=== PATIENT | female | born 1980 | race Caucasian/White ===

== ENCOUNTER 2023-05-11 19:20 | Outpatient (REF) | payer BC, SELFPAY ==
[2023-05-17 13:09] LABS: Age Gdln ACOG Testing Note (.); HPV Aptima Negative (Negative); IGP, Aptima HPV, rfx 16/18,45 Note (.)
== END 2023-05-11 19:21 | disposition home or self-care (01) ==
LOC: LAB 19:20
PROVIDERS: PCP Family Medicine; Visit Provider Obstetrics & Gynecology
DX: Z01.419 Encounter for gynecological examination (general) (routine) without abnormal findings (principal)
CPT/HCPCS: 87624; G0145

== ENCOUNTER 2023-05-27 07:56 | Outpatient (OUT) | payer BC, SELFPAY ==
--- NOTE | 2023-05-27 | MM_ITS ---
Patient Name: NIC BELTRE MR#: [id number] : 1980 Exam Date: 05/27/2023 Ordering Doctor: DR Humble Leon . RADIOLOGY REPORT PROCEDURE: MM TOMOSYNTHESIS SCREENING BI COMPARISON: MAMMO POST BIOPSY RIGHT, 08/11/2020. MG MAMM SCREEN 3D CORY CAD, 05/20/2022. INDICATIONS: Screening for malignant neoplasm Calculator Name NCI Breast Cancer Risk Assessment Tool 5 Year Breast Cancer Risk 1.00% Lifetime Breast Cancer Risk 10.60% Personal Breast Cancer No Personal Ovarian Cancer No Treatments None Family Cancers None LOCATION: [facility] BREAST COMPOSITION: Heterogeneously dense,which may obscure small masses. FINDINGS: DIAGNOSTIC CATEGORY 2--BENIGN FINDING. NO CHANGE FROM COMPARISON. Scattered benign-appearing nodules are present. Scattered benign-appearing calcifications are present. Scattered benign-appearing lymph nodes are present. RIGHT BREAST: No significant suspicious finding. Stable nodule and micro clip marker lower outer quadrant LEFT BREAST: No significant suspicious finding. Stable focal asymmetry upper outer quadrant RECOMMENDATIONS: ROUTINE MAMMOGRAM AND CLINICAL EVALUATION IN 12 MONTHS. PLEASE NOTE: A NORMAL MAMMOGRAM DOES NOT EXCLUDE THE POSSIBILITY OF BREAST CANCER. A CLINICALLY SUSPICIOUS PALPABLE LUMP SHOULD BE BIOPSIED. Dictated by: Lewis Clemons MD on 05/27/2023 at 09:10 Approved by: Lewis Clemons MD on 05/27/2023 at 09:17
== END 2023-05-27 07:57 | disposition home or self-care (01) ==
LOC: MAMMO 07:57
PROVIDERS: PCP Family Medicine; Visit Provider Obstetrics & Gynecology
DX: Z12.31 Encounter for screening mammogram for malignant neoplasm of breast (principal)
CPT/HCPCS: 77063; 77067

== ENCOUNTER 2024-05-17 19:42 | Outpatient (REF) | payer BC, SELFPAY ==
--- OUTSIDE RECORDS SUMMARY | 2024-05-17 19:46 | XMS_ITS | CCD ---
Author Organization [facility] Inform ion Partnership [facility] Care Team Providers Care Annealer Helper Name Role Phone WEST, DR GEM Escobedo Consulting Unavailable LAURIE, DR KWOK Admitting Unavailable LAURIE, DR KWOK Attending Unavailable KP, DR LUCERO Primary Care Unavailable LAURIE, DR KWOK Consulting Unavailable LAURIE, DR KWOK Consulting Unavailable LAURIE, DR KWOK Admitting Unavailable LAURIE, DR KWOK Attending Unavailable KP, DR LUCERO Primary Care Unavailable Sadie Mcclure Unavailable Clementine Kovacs MD Primary Care Provider Morelia Diamond NP Unavailable MORELIA DIAMOND Attending AMISH Sanders Attending Unavailable AMISH BRADFORD Attending Unavailable MORELIA DIAMOND Attending AMISH Sanders Attending Unavailable Allergies Allergy Classification Reported Allergen(s) Allergy Type Date of Onset Reaction(s) Facility (1 source) Sulfamethoxazole / Trimethoprim Drug Allergy [facility] Repository (5 sources) Sulfamethoxazole / Trimethoprim Drug Allergy 3 hives, Fever, Itching, Rash, Swelling [facility] Medications Current Medications Medication Drug Class(es) Dates Sig (Normalized) Sig (Original) atorvastatin 10 mg oral tablet (3 sources) HMG-CoA Reductase Inhibitor Start: 4 take 1 tablet by mouth once daily in the morning atorvastatin (Lipitor) 10 MG tablet Indications: Mixed hyperlipidemia (CMS/HCC) TAKE ONE TABLET BY MOUTH EVERY MORNING 90 tablet 1 07/15/2023 Active azithromycin 250 mg oral tablet (1 source) Macrolide Antimicrobial Start: 3 Azithromycin 250 MG 2 tablet on the first day, then 1 tablet daily for 4 days Orally Once a day for 5 day(s) November, Active buPROPion hydrochloride 100 mg oral tablet (4 sources) Aminoketone Start: 3 End: 4 take 1 tablet by mouth once daily at bedtime buPROPion (Wellbutrin) 100 MG tablet Indications: Morbid obesity (CMS/HCC) TAKE ONE TABLET BY MOUTH EVERY MORNING AND BEFORE BEDTIME 180 tablet 1 08/16/2023 Active losartan potassium 25 mg oral tablet (4 sources) Angiotensin 2 Receptor Darin Start: 3 End: 4 take 1 tablet by mouth once daily in the morning losartan (Cozaar) 25 MG tablet Indications: Primary hypertension (CMS/HCC) TAKE ONE TABLET BY MOUTH EVERY MORNING 90 tablet 1 08/16/2023 Active melatonin 5 mg oral tablet (3 sources) melatonin 5 MG t ablet 1 (one) time each day at the same time. 0 Active methylPREDNISolone 4 mg oral tablet (2 sources) Corticosteroid Start: 3 methylPREDNISolone 4 MG as directed Orally for daily dose take half with breakfast, half with dinner for 6 days Oct, Active Multiple Vitamins-Minerals (MULTIVITAMIN GUMMIES ADULT PO) (3 sources) Multiple Vitamins-Minerals (MULTIVITAMIN GUMMIES ADULT PO) Take by mouth. 0 Active naltrexone hydrochloride 50 mg oral tablet (3 sources) Opioid Antagonist Start: 3 End: 4 take 0.5 tablet by mouth in the morning naltrexone (Depade) 50 MG tablet Indications: Morbid obesity (CMS/HCC) Take 0.5 tablets (25 mg) by mouth in the morning. Take with bupropion. 45 tablet 0 05/20/2023 08/18/2023 Active 24 hr venlafaxine 37.5 mg extended release oral capsule (5 sources) Serotonin and Norepinephrine Reuptake Inhibitor Start: 3 take 1 capsule by mouth once daily in the morning venlafaxine XR (Effexor XR) 37.5 MG 24 hr capsule Indications: Anxiety and depression (CMS/HCC) TAKE ONE CAPSULE BY MOUTH EVERY MORNING 90 capsule 0 07/01/2023 Active Effexor Active Problems Problem Classification Problem Date Documented Date Episodic/Chronic Allergic reactions (3 sources) Atopic dermatitis; Translations: [Atopic dermatitis, unspecified] Onset: 04-18-2023 04-18-2023 Chronic Disorders of lipid metabolism (6 sources) Elevated fasting lipid profile; Translations: [Hyperlipidemia, unspecified] Onset: 04-18-2023 04-18-2023 Chronic Essential hypertension (1 source) Essential hypertension; Translations: [Essential (primary) hypertension] 08-16-2023 Chronic Headache; including migraine (3 sources) Tension-type headache; Translations: [Tension-type headache, unspecified, not intractable] Onset: 04-18-2023 04-18-2023 Chronic Immunizations and screening for infectious disease (1 source) Encounter for screening for human papillomavirus (HPV); Translations: [ENC SCREENING HUMAN PAPILLOMAVIRUS] Onset: 05-09-2022 Episodic Other inflammatory condition of skin (3 sources) Perioral dermatitis; Translations: [Perioral dermatitis] Onset: 04-18-2023 04-18-2023 Chronic Other nutritional; endocrine; and metabolic disorders (1 source) Morbid obesity; Translations: [Morbid (severe) obesity due to excess calories] 08-16-2023 Chronic Other screening for suspected conditions (not mental disorders or infectious disease) (8 sources) Encounter for screening mammogram for malignant neoplasm of breast; Translations: [Encounter for screening for malignant neoplasm of cervix] Onset: 05-05-2022 Episodic Other upper respiratory disease (2 sources) Seasonal allergy; Translations: [Other seasonal allergic rhinitis] Chronic Other upper respiratory disease (2 sources) Allergic rhinitis due to pollen; Translations: [Allergic rhinitis due to pollen] Chronic Other upper respiratory disease (1 source) Allergic rhinitis due to pollen Chronic Other upper respiratory infections (4 sources) Sore throat symptom; Translations: [Acute pharyngitis, unspecified] Episodic Results Test Name Value Interpretation Reference Range Facil ity Quick Strepon 11-07-2022 S. pyogenes Org specific cx Ql (Throat) Negative [facility] Other Quick Strep [facility] Other MG MAMM SCREEN 3D CORY CADon 05-20-2022 MG MAMM SCREEN 3D CORY CAD Patient: CLEMENTINE BELTRE Exam Date: 05/20/2022 : 1980 Gender:F Ordering : DR SUNDAR LEON . Admission #: [id number] Family : Order #: [id number] CLICK HERE TO VIEW EXAM RADIOLOGY REPORT PROCEDURE: MAMMOGRAM SCREENING 3D BILATERAL CAD COMPARISON: MG MAMM CORY DIAG FU, 08/05/2020. MAMMO POST BIOPSY RIGHT, 08/11/2020. INDICATIONS: Screening mammography Calculator Name NCI Breast Cancer Risk Assessment Tool 5 Year Breast Cancer Risk 0.90% Lifetime Breast Cancer Risk 10.80% Personal Breast Cancer No Personal Ovarian Cancer No Treatments None Family Cancers None LOCATION: [facility] BREAST COMPOSITION: Heterogeneously dense,which may obscure small masses. FINDINGS: DIAGNOSTIC CATEGORY 2--BENIGN FINDING. NO CHANGE FROM COMPARISON. Scattered benign-appearing calcifications are present. Scattered benign-appearing lymph nodes are present. RIGHT BREAST: No significant suspicious finding. Stable micro clip marker lower outer quadrant, mid breast LEFT BREAST: No significant suspicious finding. RECOMMENDATIONS: ROUTINE MAMMOGRAM AND CLINICAL EVALUATION IN 12 MONTHS. PLEASE NOTE: A NORMAL MAMMOGRAM DOES NOT EXCLUDE THE POSSIBILITY OF BREAST CANCER. A CLINICALLY SUSPICIOUS PALPABLE LUMP SHOULD BE BIOPSIED. Dictated by: Gem Cordon MD on 05/21/2022 at 09:12 Approved by: Gem Cordon MD on 05/21/2022 at 09:14 Normal [facility] PAP ACOG PANEL 2: 30 to 65on 05-12-2022 . . Normal [facility] Comment on above: Result Comment: Performed at: WB Performed By: #### [id number] #### [facility] [address] [place] [address] Dr. Benedicto Braswell Age Gdln ACOG Testing 30-65 Normal [facility] Comment on above: Performed By: #### [id number] #### [facility] [address] [address] [address] Benedicto Braswell DIAGNOSIS: Comment Normal [facility] Comment on above: Result Comment: NEGATIVE FOR INTRAEPITHE LIAL LESION OR MALIGNANCY. Performed at: WB Performed By: #### [id number] #### [facility] [address] [address] [address] Benedicto Braswell HPV Aptima Negative Normal Negative [facility] Comment on above: Result Comment: This nucleic acid amplif ication test detects fourteen high-risk HPV types (16,18,31,33,35,39,45,51,52,56,58,59,66,68) without differentiation. Performed at: =G Performed By: #### [id number] #### [facility] [address] [place] [address] Dr. Benedicto Braswell HPV Genotype Reflex Comment Normal [facility] Comment on above: Result Comment: Criteria not met, HPV Ge notype not performed. Performed at: WB Performed By: #### [id number] #### [facility] [address] [place] [address] Dr. Benedicto Braswell Methodology: Comment Normal [facility] Comment on above: Result Comment: This liquid based ThinPr ep(R) pap test was screened with the use of an image guided system. Performed at: WB Performed By: #### [id number] #### [facility] [address] [place] [address] Dr. Benedicto Braswell Note: Comment Normal [facility] Comment on above: Result Comment: The Pap smear is a scree sherry test designed to aid in the detection of premalignant and malignant conditions of the uterine cervix. It is not a diagnostic procedure and should not be used as the sole means of detecting cervical cancer. Both false-positive and false-negative reports do occur. . Performed at: WB Performed By: #### [id number] #### [facility] [address] [place] [address] Dr. Benedicto Braswell Performed by: Comment Normal [facility] Comment on above: Result Comment: David Ramirez, [facility] otechnologist (ASCP) Performed at: WB Performed By: #### [id number] #### [facility] [address] [place] [address] Dr. Benedicto Braswell Specimen adequacy: Comment Normal [facility] Comment on above: Result Comment: Satisfactory for evaluat ion. Endocervical and/or squamous metaplastic cells (endocervical component) are present. Performed at: WB Performed By: #### [id number] #### [facility] [address] [place] [address] Dr. Benedicto Braswell Vital Signs Date Time Vital Sign Value Performing Clinician Facility 11-07-2022 10:45-0400 Body height 168.91 cm Sadie Mcclure Other [facility] Other 11-07-2022 10:45-0400 Body mass index (BMI) [Ratio] 49.28 kg/m2 Sadie Mcclure Other [facility] Other 11-07-2022 10:45-0400 Body temperature 97.5 [degF] Sadie Mcclure Other [facility] Other 11-07-2022 10:45-0400 Body weight 140.62 kg Sadie Mcclure Other [facility] Other 11-07-2022 10:45-0400 Diastolic blood pressure 79 mm[Hg] Sadie Mcclure Other [facility] Other 11-07-2022 10:45-0400 Respiratory rate 18 /min Sadie Mcclure Other [facility] Other 11-07-2022 10:45-0400 SaO2% (BldA) [Mass fraction] 98 % Sadie Mcclure Other [facility] Other 11-07-2022 10:45-0400 Systolic blood pressure 145 mm[Hg] Sadie Mcclure Other [facility] Other Encounters Encounter Date Encounter Type Care Provider Facility Start: 02-08-2024 End: 02-08-2024 ambulatory AMISH KAMPFER Not Available Start: 11-15-2023 End: 11-15-2023 ambulatory AMISH KAMPFER Not Available Start: 08-18-2023 End: 08-18-2023 ambulatory MORELIA DIAMOND Not Available Start: 08-18-2023 Bamboo flowsheet Morelia mcdonough KNITTER HELPER Work Phone: [facility] Start: 08-18-2023 Bamboo flowsheet Morelia mcdonough KNITTER HELPER Work Phone: [facility] Start: 08-18-2023 Telephone encounter lCementine villanueva MD Work Phone: [facility] Start: 08-16-2023 Refill Amish Bradford KNITTER HELPER Work Phone: [facility] Comment on above: Primary hypertension (CMS/HCC); Morbid obesity (CMS/HCC) Start: 06-15-2023 End: 06-15-2023 ambulatory MORELIA DIAMOND Not Available Start: 05-20-2023 End: 05-20-2023 ambulatory AMISH BRADFORD Not Available Start: 11-11-2022 End: 11-11-2022 ambulatory Sadie Mcclure [facility] Other Start: 11-11-2022 Telephone encounter Sadie Mcclure [facility] [address] Start: 11-07-2022 End: 11-07-2022 ambulatory Sadie Mcclure [facility] Other Start: 11-07-2022 Office outpatient ne w 30 minutes Sadie Mcclure [facility] Start: 05-20-2022 End: 05-21-[address] GEM CORDON Facility:[facility] Start: 05-05-2022 End: 05-05-[address] SUNDAR LEON Facility:[facility] Procedures Date Procedure Procedure Detail Performing Clinician Start: 05-27-2023 Mammography Amish ortega [employer]ITTER HELPER Work Phone: Start: 05-05-2022 Microscopic observat ion [Identifier] in Cervix by Cyto stain Amish Bradford KNITTER HELPER Work Phone: Plan of Treatment Date Care Activity Detail Author Start: 05-05-2025 Screening for malign ant neoplasm of cervix [facility] Start: 05-27-2024 Screening for malign ant neoplasm of breast Mammogram [facility] Start: 05-17-2024 End: 05-17-2024 Patient encounter procedure 05/17/2024 8:30 AM EST Office Visit [facility] [address] [place] [address] Sundar Leon DO [address] [place] [address] [facility] Start: 08-18-2023 End: 08-18-2023 Patient encounter procedure 08/18/2023 4:00 PM EST Office Visit [facility] [address] [facility] [id number] Morelia Diamond NP [address], [place] [id number] Arrived [facility] Comment on above: Arrived Start: 2010 Screening for malign ant neoplasm of cervix HPV/Cotest [facility] Immunizations Immunization Date Immunization Notes Care Provider Fa [facility] 04-18-2023 influenza, injectabl e, quadrivalent, preservative free Amish Kampfer KNITTER HELPER Work Phone: [facility] 04-25-2022 influenza, injectabl e, quadrivalent, preservative free Amish Kampfer KNITTER HELPER Work Phone: [facility] 05-05-2021 influenza, injectabl e, quadrivalent, preservative free Amish Kampfer KNITTER HELPER Work Phone: [facility] 04-17-2020 influenza, injectabl e, quadrivalent, preservative free Amish Kampfer KNITTER HELPER Work Phone: [facility] 04-28-2019 influenza, injectabl e, quadrivalent, contains preservative Amish Kampfer KNITTER HELPER Work Phone: [facility] 10-09-2009 tetanus toxoid, redu melissa diphtheria toxoid, and acellular pertussis vaccine, adsorbed Amish Kampfer KNITTER HELPER Work Phone: [facility] Payers Date Payer Category Payer Unknown BCBS BCBS [id number] 2021-Present [phone] [address] [place] [address] [id number] 1980 Unknown [id number] 1980 Unknown [id number] 1980 Unknown [id number] 1980 Unknown [id number] 1980 Unknown [id number] 1980 Unknown [id number] 1980 Unknown [id number] 1959 Unknown [id number] Social History Date Type Detail Facility Unknown if ever smoked [facility] Other Start: 04-10-2023 End: 04-18-2023 Sex Assigned At [facility] Start: 04-16-2023 Tobacco smoking status KYIS Never smoked tobacco [facility] Start: 04-16-2023 Tobacco use and exposure Smokeless tobacco non-user [facility] Start: 05-20-2023 End: 08-18-2023 Alcohol intake Current drinker of alcohol (finding) [facility] Start: 04-10-2023 End: 04-18-2023 History of Social function [facility] Within the last year , have you been afraid of your partner or ex-partner? No [facility] Attends Club or Organization Meetings Not on file [facility] Are you now , , , , never or living with a partner? [facility] How often to you hav e a drink containing alcohol? Monthly or less [facility] How many standard dr inks containing alcohol do you have on a typical day? 1 or 2 [facility] How often do you hav e 6 or more drinks on 1 occasion? Never [facility] Do you feel stress - tense, restless, nervous, or anxious, or unable to sleep at night because your mind is troubled all the time - these days [OSQ] Not at all [facility] (I/We) worried [facility] (my/our) food would run out before (I/we) got money to buy more. Never true [facility] Start: 04-27-2023 Alcohol Comment caffeine: 1-2 cups/day coffee, soda [facility] Start: 1980 Sex Assigned At Not on file [facility] Start: 08-18-2023 Alcohol Comment Social drinker once a month or less [facility] Telephone encounter Note 08-18-2023 Telephone Encounter - Natasha Petit - 08/18/2023 4:32 PM EST Note Date & Type Note Facility 08-18-2023 Telephone encount er Note Patient is asking for a work note for tomorrow. She has been sick for 10 days. Yesterday she worked a 13 hour day. Please advise pt. Thank you. [facility] Note 08-18-2023 Telephone Encounter - Natasha Petit - 08/18/2023 4:32 PM EST Note Date & Type Note Facility 08-18-2023 Miscellaneous Notes Formattin g of this note might be different from the original. Patient is asking for a work note for tomorrow. She has been sick for 10 days. Yesterday she worked a 13 hour day. Please advise pt. Thank you. documented in this encounter [facility] Evaluation note 11-07-2022 Note Date & Type Note Facility 11-07-2022 Evaluation note Encounter Date Diagnosis Assessment Notes Oct, Seasonal allergic rhinitis due to pollen (ICD-10 - J30.1) Advised patient that rapid strep test was negative today in office. No other testing performed at this time. Advised patient to use OTC Zyrtec/Claritin and Flonase for symptom relief. Supportive care as directed, increase fluids and rest, Tylenol/Motrin as directed, OTC cough/cold remedies as directed on packaging, cool mist humidifier, throat lozenges. Discussed infection control practices such as good hand washing and mask wearing. Patient to follow up with PCP if symptoms persist or worsen despite treatment. Immediate eval for SOB, difficulty breathing, chest pain, fevers that do not break with antipyretic or any other concerning symptoms as reviewed on patient education handout. Patient verbalizes understanding and is agreeable to treatment plan. Patient left in stable condition. Oct, Laryngitis (ICD-10 - J04.0) Rapid strep test negative today in office. Will send in Rx of Medrol Dosepak to use as directed. Follow above treatment plan recommendations. Oct, Sore throat (ICD-10 - J02.9) [facility] Other Evaluation note Note Date & Type Note Facility Evaluation note No Information [employer] [facility] Other Evaluation note Note Date & Type Note Facility Evaluation note Diagnosis Primary hypertension (CMS/HCC) Unspecified essential hypertension Morbid obesity (CMS/HCC) Morbid obesity documented in this encounter [facility] History general Narrative - Reported Note Date & Type Note Facility History general Narrative - Reported Type Surgical History LEEP Surgical History tubal ligation Surgical History polypectomy from cervix Surgical History breast biopsy Hospitalization History See above [facility] Other Summary Purpose Family History No Family History Records FoundNo Family History Records Found Advance Directives No Advanced Directives Records FoundNo Advanced Directives Records Found Additional Source Comments INFORMATION SOURCE (unrecogn ized section and content) DATE CREATED AUTHOR 05/24/2022 [facility] DATE CREATED AUTHOR AUTHOR'S ORGANIZ ATION 02/11/2024 [facility] EPIC REASON FOR VISIT (unrecogniz ed section and content) Reason Comments Med Refill Care Teams (unrecognized sec tion and content) Annealer Helper Relationship Specialty Start Date End Date Clementine Kovacs MD [address] [place] [address] PCP - General Family Medicine 11/16/22 Morelia Diamond NP [address] [place] [address] PCP - Fabián [employer] 06/10/23 Annealer Helper Relationship Specialty Start Date End Date Clementine Kovacs MD [address] [place], [place] [id number] PCP - General Family Medicine 11/16/22 Morelia Diamond NP [address], [place] [id number] PCP - Fabián Commercial 06/10/23 FOR RECORDS PERTAINING TO PATIENTS WHO ARE OR HAVE BEEN ENROLLED IN A CHEMICAL DEPENDENCY/SUBSTANCEABUSE PROGRAM, SOME INFORMATION MAY BE OMITTED. This clinical summary was aggregated from multiple sources. Caution should be exercised in using it in the provision of clinical care. This summary normalizes information from multiple sources, and as a consequence, information in this document may materially change the coding, format and clinical context of patient data. In addition, data may be omitted in some cases. CLINICAL DECISIONS SHOULD BE BASED ON THE PRIMARY CLINICAL RECORDS. [facility]. provides no warranty or guarantee of the accuracy or completeness of information in this document.
== END 2024-05-17 19:43 | disposition home or self-care (01) ==
LOC: LAB 19:42
PROVIDERS: PCP Family Medicine; Visit Provider Obstetrics & Gynecology
DX: Z01.419 Encounter for gynecological examination (general) (routine) without abnormal findings (principal)
CPT/HCPCS: 87624; 88175

== ENCOUNTER 2024-05-29 16:24 | Outpatient (OUT) | payer BC, SELFPAY ==
--- NOTE | 2024-05-29 16:26 | MM_ITS ---
Patient Name: NIC BELTRE MR#: [id number] : 1980 Exam Date: 05/29/2024 Ordering Doctor: DR SUNDAR SULLIVAN . RADIOLOGY REPORT PROCEDURE: MM TOMOSYNTHESIS SCREENING BI COMPARISON: MG MAMM SCREEN 3D CORY CAD, 05/20/2022. MM TOMOSYNTHESIS SCREENING BI, 05/27/2023. INDICATIONS: Screening for malignant neoplasm Calculator Name NCI Breast Cancer Risk Assessment Tool 5 Year Breast Cancer Risk 1.10% Lifetime Breast Cancer Risk 10.50% Personal Breast Cancer No Personal Ovarian Cancer No Treatments None Family Cancers None LOCATION: [facility] BREAST COMPOSITION: The breasts are heterogeneously dense,which may obscure small masses. FINDINGS: DIAGNOSTIC CATEGORY 2--BENIGN FINDING. NO CHANGE FROM COMPARISON. Scattered benign-appearing nodules are present. Scattered benign-appearing calcifications are present. Scattered benign-appearing lymph nodes are present. RIGHT BREAST: No significant suspicious finding. LEFT BREAST: No significant suspicious finding. RECOMMENDATIONS: ROUTINE MAMMOGRAM AND CLINICAL EVALUATION IN 12 MONTHS. PLEASE NOTE: A NORMAL MAMMOGRAM DOES NOT EXCLUDE THE POSSIBILITY OF BREAST CANCER. A CLINICALLY SUSPICIOUS PALPABLE LUMP SHOULD BE BIOPSIED. Dictated by: Lewis Clemons MD on 05/30/2024 at 08:30 Approved by: Lewis Clemons MD on 05/30/2024 at 08:31
== END 2024-05-29 16:25 | disposition home or self-care (01) ==
LOC: MAMMO 16:24
PROVIDERS: PCP Family Medicine; Visit Provider Obstetrics & Gynecology
DX: Z12.31 Encounter for screening mammogram for malignant neoplasm of breast (principal)
CPT/HCPCS: 77063; 77067

== ENCOUNTER 2025-05-30 09:23 | Outpatient (OUT) | payer BC, SELFPAY ==
--- NOTE | 2025-05-30 09:24 | MM_ITS ---
Patient Name: NIC BELTRE MR#: [id number] : 1980 Exam Date: 05/30/2025 Ordering Doctor: DR SUNDAR SULLIVAN . RADIOLOGY REPORT PROCEDURE: MM TOMOSYNTHESIS SCREENING BI COMPARISON: MM TOMOSYNTHESIS SCREENING BI, 05/29/2024. MM TOMOSYNTHESIS SCREENING BI, 05/27/2023. MG MAMM SCREEN 3D CORY CAD, 05/20/2022. MG MAMM SCREEN CORY W CAD, 07/28/2020. INDICATIONS: Screening Calculator Name NCI Breast Cancer Risk Assessment Tool 5 Year Breast Cancer Risk 1.20% Lifetime Breast Cancer Risk 10.40% Personal Breast Cancer No Personal Ovarian Cancer No Treatments None Family Cancers None LOCATION: [facility] BREAST COMPOSITION: There are scattered areas of fibroglandular density. FINDINGS: DIAGNOSTIC CATEGORY 1--NEGATIVE. RIGHT BREAST: No significant suspicious finding. LEFT BREAST: No significant suspicious finding. RECOMMENDATIONS: ROUTINE MAMMOGRAM AND CLINICAL EVALUATION IN 12 MONTHS. Dictated by: Jaime Dawson DO on 05/30/2025 at 15:07 Approved by: Jaime Dawson DO on 05/30/2025 at 15:08
--- OUTSIDE RECORDS SUMMARY | 2025-05-30 09:26 | XMS_ITS | Clinical Summary ---
Author Organization [facility] tem Address [id number] [address] 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 Name Role Phone Unavailable Primary Care Provider Unavailabl e Social History Tobacco UseTypesPacks/DayYears UsedDateSmoking Tobacco: Never AssessedChildcare AnswerDate NnfyptoaQcnxovwknYldeheq49/12/2019EmploymentAnswerDate Recorded SndwfawbroApzpbzi43/12/2019CommentsUnknownSex and Gender Information ValueDate RecordedSex Assigned at BirthNot on fileLegal UgsBdmklt72/06/2015 12:06 PM EDTGender IdentityNot on fileSexual OrientationNot on file Plan of Treatment Health MaintenanceDue DateLast DoneCommentsDepression Zlohkypoy53/06/1992Tobacco Vtxhwkgik32/06/1992Adult BMI Hyymszwvf63/06/1998DTaP,Tdap and Td Vaccines (1 - Tdap)1999Pap Smear2001Influenza Zlefdvs7003/11/2025 Medical Devices Not on file Insurance
--- OUTSIDE RECORDS SUMMARY | 2025-05-30 09:32 | XMS_ITS | CCD ---
Author Organization [facility] Care Team Providers Care Health Care Sanitary Technician Name Role Phone WEST, DR GEM Escobedo Consulting Unavailable EDWARD, DR KWOK Admitting Unavailable EDWARD, DR KWOK Attending Unavailable KP, DR LUCERO Primary Care Unavailable EDWARD, DR KWOK Consulting Unavailable EDWARD, DR KWOK Consulting Unavailable EDWARD, DR KWOK Admitting Unavailable EDWARD, DR KWOK Attending Unavailable KP, DR LUCERO Primary Care Unavailable Sadie Mcclure Unavailable Clementine Goodrich MD Primary Care Provider Dara QUALITY CONTROL DIRECTOR, Morelia Sykes Unavailable Juarez QUALITY CONTROL DIRECTOR, Hyacinth Sykes Unavailable Juarez QUALITY CONTROL DIRECTOR, Hyacinth A Unavailable AMISH BRADFORD Attending Unavailable AMISH BRADFORD Attending Unavailable SUNDAR LEON Attending Unavailable AMISH BRADFORD Attending Unavailable AMISH BRADFORD Attending Unavailable MORELIA YEE Attending Unavailab le Allergies Allergy ClassificationReported Allergen(s)Allergy TypeDate of OnsetReaction(s) Facility (1 source)Sulfamethoxazole / TrimethoprimDrug AllergyThe [facility] (20 sources)Sulfamethoxazole / TrimethoprimDrug Otostrk62-44-6903vybyt, Fever, Itching, Rash, SwellingNOMS Healthcare (1 source)SulfamethoxazoleDrug Rufkyql38-22-8109IgsddCsbqinledChildren's Hospital for Rehabilitation (1 source)TrimethoprimDrug Jstgosd89-86-4059SgshaZadavorvsChildren's Hospital for Rehabilitation Medications Current Medications MedicationDrug Class(es)DatesSig (Normalized)Sig (Original)[id number] 200 actuat albuterol 0.09 mg/actuat metered dose inhaler (7 sources)beta2-Adrenergic AgonistStart: 55-98-2628orqo 2 puff(s) by inhalation every four hours for wheezingalbuterol HFA 90 mcg/act inhaler Indications: Acute bronchitis, unspecified organism Inhale 2 puffsevery 4 (four) hours if needed for wheezing 18 g 12/21/2024 Activeamoxicillin 500 mg oral capsule (5 sources)Penicillin-class AntibacterialStart: 91-20-4190qxck 1 capsule by mouth every eight hours as neededamoxicillin (Amoxil) 500 MG capsule Take 500 mg by mouth if needed (every 8 hours as needed) 01/14/2025 Activeamoxicillin 875 mg / clavulanate 125 mg oral tablet (3 sources)Penicillin-class AntibacterialStart: 05-14-2025 End: 94-90-0846rvah 1 tablet by mouth in the morningamoxicillin-clavulanate (Augmentin) 875-125 MG tablet Indications: Bronchitis , Acute left otitis media Take 1 tablet (875 mg) by mouth in the morning and 1 tablet (875 mg) before bedtime. Do all this for 7 days. 14 tablet 05/14/2025 05/21/2025 ActiveStart: 12-21-2024 End: 12-97-6939ausz 1 tablet by mouth in the morningamoxicillin-clavulanate (Augmentin) 875-125 MG tablet Indications: Acute cough Take 1 tablet (875 mg) by mouth in the morning and 1 tablet (875 mg) before bedtime. Do all this for 7 days. 14 tablet 12/21/2024 12/28/2024 Activeatorvastatin 20 mg oral tablet (20 sources)HMG-CoA Reductase InhibitorStart: 50-33-0194wxdg 1 tablet by mouth once dailyatorvastatin (Lipitor) 20 MG tablet Indications: Mixed hyperlipidemia TAKE 1 TABLET BY MOUTH DAILY 90 tablet 03/13/2025 ActiveStart: 96-21-3479etvi 1 tablet by mouth once dailyatorvastatin (Lipitor) 20 MG tablet Indications: Mixed hyperlipidemia TAKE 1 TABLET BY MOUTH DAILY 90 tablet 12/13/2024 ActiveStart: 36-65-3974wwrh 1 tablet by mouth once dailyatorvastatin (Lipitor) 20 MG tablet Indications: Mixed hyperlipidemia (CMS/HCC) TAKE 1 TABLET BY MOUTH DAILY 90 tablet 09/17/2024 ActiveStart: 98-57-9057Uozkmdjcarta 20 mg tablet Active MG PO September 05, 2024 12:00amStart: 07-00-1305gdgt 1 tablet by mouth once daily atorvastatin (Lipitor) 20 MG tablet Indications: Mixed hyperlipidemia (CMS/HCC) Take 1 tablet (20 mg) by mouth Daily 90 tablet 06/21/2024 ActiveStart: 01-13-2024 End: 73-15-3733nwbz 1 tablet by mouth once daily in the morningatorvastatin (Lipitor) 10 MG tablet Indications: Mixed hyperlipidemia (CMS/HCC) TAKE 1 TABLET BY MOUTH EVERY MORNING 90 tablet 1 01/13/2024 06/21/2024 Discontinued (Reorder) Start: 29-08-7440pbdr 1 tablet by mouth once daily in the morningatorvastatin (Lipitor) 10 MG tablet Indications: Mixed hyperlipidemia (CMS/HCC) TAKE ONE TABLET BY MOUTH EVERY MORNING 90 tablet 1 07/15/2023 Activeazithromycin 250 mg oral tablet (1 source)Macrolide AntimicrobialStart: 92-67-3676Qyrvtnvnmtqf 250 MG 2 tablet on the first day, then 1 tablet daily for 4 days Orally Once a day for5 day(s) November, Activebenzonatate 100 mg oral capsule (2 sources)Non-narcotic AntitussiveStart: 05-14-2025 End: 14-89-4671mjck 1 capsule by mouth three times daily as needed for cough benzonatate (Tessalon Perles) 100 MG capsule Indications: Bronchitis Take 1 capsule (100 mg) by mouth 3 (three) times a day as needed for cough for up to 7 days Do not crush or chew. 20 capsule 05/14/2025 05/21/2025 ActivebuPROPion hydrochloride 100 mg oral tablet (20 sources)AminoketoneStart: 08-07-2024 End: 98-47-0796enqg 1 tablet by mouth once daily in the morning, then take 1 tablet by mouth once daily at bedtimebuPROPion (Wellbutrin) 100 MG tablet Indications: Morbid obesity (CMS/HCC) TAKE 1 TABLET BY MOUTH EVERY MORNING AND TAKE 1 TABLET BY MOUTH DAILY BEFORE BEDTIME 180 tablet 1 08/07/2024 12/14/2024 Discontinued (Therapy completed)Start: 04-23-4691uhao 1 tablet by mouth in the morningbuPROPion (Wellbutrin) 100 MG tablet Indications: Morbid obesity (CMS/HCC) Take 1 tablet (100 mg) by mouth in the morning and 1 tablet (100 mg) before bedtime. 180 tablet 1 11/15/2023 ActiveStart: 05-20-2023 End: 98-46-1724ztfx 1 tablet by mouth once daily at bedtimebuPROPion (Wellbutrin) 100 MG tablet Indications: Morbid obesity (CMS/HCC) TAKE ONE TABLET BY MOUTHEVERY MORNING AND BEFORE BEDTIME 180 tablet 1 08/16/2023 Activelosartan potassium 25 mg oral tablet (20 sources)Angiotensin 2 Receptor BlockerStart: 01-11-7446fwjg 1 tablet by mouth once daily in the morninglosartan (Cozaar) 25 MG tablet Indications: Primary hypertension TAKE 1 TABLET BY MOUTH EVERY MORNING 90 tablet 1 01/31/2025 ActiveStart: 22-30-9576zbng 1 tablet by mouth once daily in the morninglosartan (Cozaar) 25 MG tablet Indications: Primary hypertension TAKE 1 TABLET BY MOUTH EVERY MORNING 90 tablet 1 08/07/2024 ActiveStart: 46-34-0070ybpc 1 tablet by mouth in the morninglosartan (Cozaar) 25 MG tablet Indications: Primary hypertension (CMS/HCC) Take 1 tablet (25 mg) bymouth in the morning. 90 tablet 1 11/15/2023 ActiveStart: 05-20-2023 End: 45-55-5345epio 1 tablet by mouth once daily in the morninglosartan (Cozaar) 25 MG tablet Indications: Primary hypertension (CMS/HCC) TAKE ONE TABLET BY MOUTHEVERY MORNING 90 tablet 1 08/16/2023 Activemelatonin 5 mg oral tablet (20 sources)melatonin 5 MG tablet 1 (one) time each day at the same time. Active methylPREDNISolone 4 mg oral tablet (2 sources)CorticosteroidStart: 33-57-1262qdpiivDJCIODLthtev 4 MG as directed Orally for daily dose take half with breakfast, half with dinner for 6 days Oct, ActiveMultiple Vitamins-Minerals (MULTIVITAMIN GUMMIES ADULT PO) (20 sources)Multiple Vitamins-Minerals (MULTIVITAMIN GUMMIES ADULT PO) Take by mouth. ActiveMultiple Vitamins-Minerals (MULTIVITAMIN GUMMIES ADULT PO) Take by mouth. 0 Activenaltrexone hydrochloride 50 mg oral tablet (20 sources)Opioid AntagonistStart: 11-15-2023 End: 66-97-4831ayzz 0.5 tablet by mouth once dailynaltrexone (Depade) 50 MG tablet Indications: Morbid obesity (CMS/HCC) TAKE A HALF TABLET BY MOUTH DAILY 15 tablet 10/26/2024 ActiveStart: 05-20-2023 End: 51-90-5477efcl 0.5 tablet by mouth in the morningnaltrexone (Depade) 50 MG tablet Indications: Morbid obesity (CMS/HCC) Take 0.5 tablets (25 mg) by mouth in the morning. Take with bupropion. 45 tablet 0 05/20/2023 08/18/2023 Active predniSONE 20 mg oral tablet (1 source)Start: 12-21-2024 End: 59-04-9836habh 1 tablet by mouth in the morningpredniSONE (Deltasone) 20 MG tablet Indications: Acute bronchitis, unspecified organism Take 1 tablet (20 mg) by mouth in the morning and 1 tablet (20 mg) before bedtime. Do all this for 5 days. 10 tablet 12/21/2024 12/26/2024 Activetopiramate 25 mg oral tablet (14 sources)Start: 12-14-2024 End: 52-01-8954pvcf 1 tablet by mouth in the morningtopiramate (Topamax) 25 MG tablet Indications: Morbid obesity (CMS-HCC) Take 1 tablet (25 mg) by mouth in the morning and 1 tablet (25 mg) before bedtime. 180 tablet 1 01/18/2025 Active 24 hr venlafaxine 37.5 mg extended release oral capsule (20 sources)Serotonin and Norepinephrine Reuptake InhibitorStart: 60-45-3750evob 1 capsule by mouth once daily in the morningvenlafaxine XR (Effexor XR) 37.5 MG 24 hr capsule Indications: Anxiety and depression TAKE 1 CAPSULE BY MOUTH EVERY MORNING 90 capsule 1 12/13/2024 ActiveStart: 36-57-9503hvoo 1 capsule by mouth every twenty-four hours in the morningvenlafaxine XR (Effexor XR) 37.5 MG 24 hr capsule Indications: Anxiety and depression (CMS/HCC) Take 1 capsule (37.5 mg) by mouth in the morning. 90 capsule 1 06/22/2024 ActiveStart: 03-19-2024 End: 15-27-9216psex 1 capsule by mouth once daily in the morningvenlafaxine XR (Effexor XR) 37.5 MG 24 hr capsule Indications: Anxiety and depression (CMS/HCC) TAKE 1 CAPSULE BY MOUTH EVERY MORNING 90 capsule 03/19/2024 06/22/2024 Discontinued (Reorder)Start: 23-20-3205jtkp 1 capsule by mouth once daily in the morningvenlafaxine XR (Effexor XR) 37.5 MG 24 hr capsule Indications: Anxiety and depression (CMS/HCC) TAKE ONE CAPSULE BY MOUTH EVERY MORNING 90 capsule 0 07/01/2023 ActiveEffexor Active Problems Active Problems Problem ClassificationProblemDateDocumented DateEpisodic/ChronicAcute bronchitis (1 source)Acute bronchitis; Translations: [Acute bronchitis, unspecified] 43-25-9940LedahddjRnsrkva disorders (1 source)Mixed anxiety and depressive disorder; Translations: [Anxiety disorder, unspecified]17-69-1674RrtzyekPmompup obstructive pulmonary disease and bronchiectasis (2 sources)Bronchitis; Translations: [Bronchitis, not specified as acute or chronic]29-14-6976VkeutwveLkhhlebc mellitus without complication (2 sources)Prediabetes; Translations: [Prediabetes]57-11-4136XmjwbkfiFjieulwiz of lipid metabolism (20 sources)Elevated fasting lipid profile; Translations: [Hyperlipidemia, unspecified]Onset: 421059-89-5804KppdncoZwbcmfxbj of teeth and jaw (2 sources)Dental abscess; Translations: [Periapical abscess without sinus] 56-38-1520OkvwcmhnKqehykaao hypertension (18 sources)Essential hypertension; Translations: [Essential (primary) hypertension]Onset: 382819-07-6432QcidsvkKajvbqoipbebz and screening for infectious disease (1 source)Encounter for screening for human papillomavirus (HPV); Translations: [ENC SCREENING HUMAN PAPILLOMAVIRUS]Onset: 81-30-7112CplwkogcEvhxl lower respiratory disease (1 source)Cough; Translations: [Acute cough]04-62-2027EjxukgwnEtxug nutritional; endocrine; and metabolic disorders (20 sources)Morbid obesity; Translations: [Morbid (severe) obesity due to excess calories]Onset: 898283-93-7730NhlphyqYtsoz upper respiratory disease (2 sources)Seasonal allergy; Translations: [Other seasonal allergic rhinitis] ChronicOther upper respiratory disease (2 sources)Allergic rhinitis due to pollen; Translations: [Allergic rhinitis due to pollen]ChronicOther upper respiratory disease (1 source)Allergic rhinitis due to pollenChronicOther upper respiratory disease (2 sources)Nasal congestion; Translations: [Nasal congestion]00-11-6423Gavacoit Other upper respiratory infections (6 sources)Sore throat symptom; Translations: [Acute pharyngitis, unspecified] EpisodicOtitis media and related conditions (2 sources)Acute left otitis media; Translations: [Otitis media, unspecified, left ear]51-04-6457YbrilnmsVmqcjembeqqq (19 sources)Patient on antidepressant monitoring planOnset: Past or Other Problems Problem ClassificationProblemDateDocumented DateEpisodic/ChronicAllergic reactions (20 sources)Atopic dermatitis; Translations: [Atopic dermatitis, unspecified] Onset: 04-18-2023 Resolved: 574401-30-8677LxjhwicWtjsfwws; including migraine (20 sources)Tension-type headache; Translations: [Tension-type headache, unspecified, not intractable]Onset: 04-18-2023 Resolved: 452910-83-7929VchhjnaLxyi disorders (20 sources)Mood disordersOnset: 06-05-2024 Resolved: Other inflammatory condition of skin (20 sources)Perioral dermatitis; Translations: [Perioral dermatitis]Onset: 04-18-2023 Resolved: 767345-14-9837VwcdnvdAdsbt screening for suspected conditions (not mental disorders or infectious disease) (20 sources)Encounter for screening mammogram for malignant neoplasm of breast; Translations: [Encounter for screening for malignant neoplasm of cervix]Onset: 05-05-2022 Resolved: 17-48-2796Hmbhbskc Results Test NameValueInterpretationReference RangeFacilityMM TOMOSYNTHESIS SCREENING BI on 45-81[place]6046[place] [address] Mammography Report Signed Patient: CLEMENTINE ENRIQUEZ MR#: [id number] : 1980 Acct:[id number] Age/Sex: 44 / F ADM Date: 05/29/24 Loc: MAMMO Attending Dr: Sundar Leon D.O. Ordering Physician: Sundar Leon D.O. Results: Date of Service: 05/29/24 Follow Up: Procedure(s): MM tomosynthesis screening BI Accession Number(s): [id number] cc: Sundar Leon D.O.; CLEMENTINE GOODRICH Patient Name: CLEMENTINE ENRIQUEZ MR#: [id number] : 1980 Exam Date: 05/29/2024 Ordering Doctor: DR SUNDAR LEON . RADIOLOGY REPORT PROCEDURE: MM TOMOSYNTHESIS SCREENING BI COMPARISON: MG MAMM SCREEN 3D CORY CAD, 05/20/2022. MM TOMOSYNTHESIS SCREENING BI, 05/27/2023. INDICATIONS: Screening for malignant neoplasm Calculator Name NCI Breast Cancer Risk Assessment Tool 5 Year Breast Cancer Risk 1.10% Lifetime Breast Cancer Risk 10.50% Personal Breast Cancer No Personal Ovarian Cancer No Treatments None Family Cancers None LOCATION: [facility] BREAST COMPOSITION: The breasts are heterogeneously dense,which may obscure small masses. FINDINGS: DIAGNOSTIC CATEGORY 2--BENIGN FINDING. NO CHANGE FROM COMPARISON. Scattered benign-appearing nodules are present. Scattered benign-appearing calcifications are present. Scattered benign-appearing lymph nodes are present. RIGHT BREAST: No significant suspicious finding. LEFT BREAST: No significant suspicious finding. RECOMMENDATIONS: ROUTINE MAMMOGRAM AND CLINICAL EVALUATION IN 12 MONTHS. PLEASE NOTE: A NORMAL MAMMOGRAM DOES NOT EXCLUDE THE POSSIBILITY OF BREAST CANCER. A CLINICALLY SUSPICIOUS PALPABLE LUMP SHOULD BE BIOPSIED. Dictated by: Gem Clemons MD on 05/30/2024 at 08:30 Approved by: Gem Clemons MD on 05/30/2024 at 08:31 Dictated By: Gem Clemons M.D. Signed By: 05/30/2433 DD/ TD/TT: Inorganic Chemist:TBHRadiology, Radiologist, - 05/30/2024 [facility] [place] [id number] Mammography Report Signed Patient: CLEMENTINE ENRIQUEZ MR#: [id number] : 1980 Acct:[id number] Age/Sex: 44 / F ADM Date: 05/29/24 Loc: MAMMO Attending Dr: Sundar Leon D.O. Ordering Physician: Sundar Leon D.O. Results: Date of Service: 05/29/24 Follow Up: Procedure(s): MM tomosynthesis screening BI Accession Number(s): [id number] cc: Sundar Leon D.O.; CLEMENTINE GOODRICH Patient Name: CLEMENTINE ENRIQUEZ MR#: [id number] : 1980 Exam Date: 05/29/2024 Ordering Doctor: DR SUNDAR LEON . RADIOLOGY REPORT PROCEDURE: MM TOMOSYNTHESIS SCREENING BI COMPARISON: MG MAMM SCREEN 3D CORY CAD, 05/20/2022. MM TOMOSYNTHESIS SCREENING BI, 05/27/2023. INDICATIONS: Screening for malignant neoplasm Calculator Name NCI Breast Cancer Risk Assessment Tool 5 Year Breast Cancer Risk 1.10% Lifetime Breast Cancer Risk 10.50% Personal Breast Cancer No Personal Ovarian Cancer No Treatments None Family Cancers None LOCATION: [facility] BREAST COMPOSITION: The breasts are heterogeneously dense,which may obscure small masses. FINDINGS: DIAGNOSTIC CATEGORY 2--BENIGN FINDING. NO CHANGE FROM COMPARISON. Scattered benign-appearing nodules are present. Scattered benign-appearing calcifications are present. Scattered benign-appearing lymph nodes are present. RIGHT BREAST: No significant suspicious finding. LEFT BREAST: No significant suspicious finding. RECOMMENDATIONS: ROUTINE MAMMOGRAM AND CLINICAL EVALUATION IN 12 MONTHS. PLEASE NOTE: A NORMAL MAMMOGRAM DOES NOT EXCLUDE THE POSSIBILITY OF BREAST CANCER. A CLINICALLY SUSPICIOUS PALPABLE LUMP SHOULD BE BIOPSIED. Dictated by: Gem Clemons MD on 05/30/2024 at 08:30 Approved by: Gem Clemons MD on 05/30/2024 at 08:31 Dictated By: Gem Clemons M.D. Signed By: 05/30/24 0833 DD/ TD/TT: Inorganic Chemist: [facility] HealthcareRadiology Study observation (narrative)[facility] TOMOSYNTHESIS SCREENING BIOrdered By: Radiologist Radiology on 54-47-6478TVZW Healthcare Work Phone: PHILOMENA,RICKIMA HPV,AGE GDLNon 75-78-1787AXP GDLN ACOG TESTINGNote.[facility] HealthcareComment on above:TESTS RESULT FLAG UNITS REF RANGE LAB Clinician Provided Cytology Information Source.............Cervix;Endocervix No. of containers..01 ThinPrep Vial Age Algo ACOG Mercedes... 30-65 01 FLAG LEGEND: L-Low Normal,H-High Normal,LL-Alert Low,HH-Alert High <-Panic Low,>-Panic High,A-Abnormal,AA-Critical Abnormal Performed at: 01 =[facility] [address] Leana Dobson MD, HPV APTIMANegativeNegativeST. MARK'S [facility]ITAL HealthcareComment on above:This nucleic acid amplification test detects fourteen high- risk HPV types (16,18,31,33,35,39,45,51,52,56,58,59,66,68) without differentiation. Performed at: =[facility] [id number] Jig Worker: Leana Dobson MD, Phone: [phone] Performed at: - [facility] [address], [place] [id number] Jig Worker: Leana Dobson MD, Phone: [phone] IGP, APTIMA HPV, RFX 16/18,45Note.[facility] HealthcareComment on above:TESTS RESULT FLAG UNITS REF RANGE LAB DIAGNOSIS: 02 NEGATIVE FOR INTRAEPITHELIAL LESION OR MALIGNANCY. Specimen adequacy: 02 Satisfactory for evaluation. Endocervical and/or squamous metaplastic cells (endocervical component) are present. Performed by: Helio Matos, Medical Lab Specialist (ASC) . 02 Note: Note 02 The Pap smear is a screening test designed to aid in the detection of premalignant and malignant conditions of the uterine cervix. It is not a diagnostic procedure and should not be used as the sole means of detecting cervical cancer. Both false-positive and false-negative reports do occur. Test Methodology: Note 02 This liquid based ThinPrep(R) pap test was screened with the use of an image guided system. HPV Genotype Reflex Note 02 Criteria not met, HPV Genotype not performed. FLAG LEGEND: L-Low Normal,H-High Normal,LL-Alert Low,HH-Alert High <-Panic Low,>-Panic High,A-Abnormal,AA-Critical Abnormal Performed at: 02 WB [facility] [address], [place] [address] Leana Dobson MD, BRUSH-SPATULA CERVIX ENDOCERVIX CLINISYNCNOMS [facility] SpringfieldQuick Strepon 11-07-2022S. pyogenes Org specific cx Ql (Throat)NegativeFlagstaff [employer] Other Quick StrepNoLiquavista Other mg MAMM SCREEN 3D CORY CADon 15-01-3353TO MAMM SCREEN 3D CORY CADPatient: CLEMENTINE ENRIQUEZ Exam Date: 05/20/2022 : 1980 Gender:F Ordering : DR SUNDAR LEON . Admission #: [id number] Family : Order #: [id number] CLICK HERE TO VIEW EXAM RADIOLOGY REPORT PROCEDURE: MAMMOGRAM SCREENING 3D BILATERAL CAD COMPARISON: MG MAMM CORY DIAG FU, 08/05/2020. MAMMO POST BIOPSY RIGHT, 08/11/2020. INDICATIONS: Screening mammography Calculator Name NCI Breast Cancer Risk Assessment Tool 5 Year Breast Cancer Risk 0.90% Lifetime Breast Cancer Risk 10.80% Personal Breast Cancer No Personal Ovarian Cancer No Treatments None Family Cancers None LOCATION: [facility] BREAST COMPOSITION: Heterogeneously dense,which may obscure small [...] LUMP SHOULD BE BIOPSIED. Dictated by: Gem Clemons MD on 05/21/2022 at 09:12 Approved by: Gem Clemons MD on 05/21/2022 at 09:14[facility] ACOG PANEL 2: 30 to 65on 05-12-2022..NormalThe [facility] HospitalComment on above:Result Comment: Performed at: WBPerformed By: #### [id number] #### [facility] [address] [place] [address] Dr. Benedicto Morris Gdln ACOG Ulwivku75-56TangneAuwProMedica Bay Park HospitalComment on above:Performed By: #### [id number] #### [facility] [address] [place] [address] Dr. Benedicto BraswellDIAGNOSIS:CommentProMedica Defiance Regional Hospital on above: Result Comment: NEGATIVE FOR INTRAEPITHELIAL LESION OR MALIGNANCY. Performed at: WBPerformed By: #### [id number] #### [facility] [address] [place] [address] Dr. Benedicto Narayanan AptimaNegativeNormalNegativeThe [facility] on above:Result Comment: This nucleic acid amplification test detects fourteen high-risk HPV types (16,18,31,33,35,39,45,51,52,56,58,59,66,68) without differentiation. Performed at: =GPerformed By: #### [id number] #### [facility] [address] [place] [address] Dr. Benedicto Narayanan Genotype ReflexCommentNoDoctors Hospital on above:Result Comment: Criteria not met, HPV Genotype not performed. Performed at: WBPerformed By: #### [id number] #### [facility] [address] [place] [address] Dr. Benedicto BraswellMethodology:CommentNoDoctors Hospital on above: Result Comment: This liquid based ThinPrep(R) pap test was screened with the use of an image guided system. Performed at: WBPerformed By: #### [id number] #### [facility] [address] [place] [address] Dr. Benedicto BraswellNote:CommentNoDoctors Hospital on above:Result Comment: The Pap smear is a screening test designed to aid in the detection of premalignant and malignant conditions of the uterine cervix. It is not a diagnostic procedure and should not be used as the sole means of detecting cervical cancer. Both false-positive and false-negative reports do occur. . Performed at: WBPerformed By: #### [id number] #### [facility] [address] [place] [address] Dr. Benedicto BraswellPerformed by:CommentNoDoctors Hospital on above: Result Comment: David Ramirez, Medical Lab Specialist (ASCP) Performed at: WBPerformed By: #### [id number] #### [facility] [address] [place] [address] Dr. Benedicto BraswellSpecimen adequacy:CommentNoProMedica Bay Park HospitalComment on above:Result Comment: Satisfactory for evaluation. Endocervical and/or squamous metaplastic cells (endocervical component) are present. Performed at: WBPerformed By: #### [id number] #### [facility] [address] [place] [address] Dr. Benedicto Braswell Vital Signs Date TimeVital SignValuePerforming TansgrribRvpktngp74-88-7797 08:36-0500Body mass index (BMI) [Ratio]50.59 kg/d8Utmgpagdax Yee QUALITY CONTROL DIRECTOR Work Phone: [phone]11-04-2025 08:36-0500Body temperature 97.5 [degF]Morelia Yee QUALITY CONTROL DIRECTOR Work Phone: [phone] [place], [place] [address]Hecxaklkvk38-02-7664 08:36-0500Body margjg239.51 kgChdax Yee QUALITY CONTROL DIRECTOR Work Phone: [phone] [place], [place] [address]Taqbhmfanm60-97-4941 08:36-0500Diastolic blood mm[Hg]Morelia Yee QUALITY CONTROL DIRECTOR Work Phone: [phone] [place], [place] [address]Rbenpbrdvw95-06-8098 08:36-0500Heart rate87 /min Morelia Yee QUALITY CONTROL DIRECTOR Work Phone: [phone] [place], [place] [address]Bozmomyhqa72-05-6509 08:36-0765HmF6% (BldA) [Mass fraction]97 %Morelia Yee QUALITY CONTROL DIRECTOR Work Phone: [phone] [place], [place] [address]Ltgdpycjaa30-93-8881 08:36-0500Systolic blood cwixqwsk913 mm[Hg]Morelia Yee QUALITY CONTROL DIRECTOR Work Phone: [facility] HospitalFxifcpcbxl65-68-8119 08:00-0400Body mass index (BMI) [Ratio]49.18 kg/x4ThuugAmish Bradford QUALITY CONTROL DIRECTOR Work Phone: [phone] HospitalUbrcpvnkkj35-63-1518 08:00-0400Body covpbs664.43 kgAmish Bradford QUALITY CONTROL DIRECTOR Work Phone: [phone] [address]Tfwwhytnlw08-88-9903 08:00-0400Diastolic blood mm[Hg]Amish Bradford QUALITY CONTROL DIRECTOR Work Phone: [phone] [place], [place] [address]Gxomuaghnt80-56-2685 08:00-0400Heart rate80 /min Amish Bradford QUALITY CONTROL DIRECTOR Work Phone: [phone] [address]-11-2025 08:00-3202OiY7% (BldA) [Mass fraction]97 %Amish Bradford QUALITY CONTROL DIRECTOR Work Phone: [phone] [place] [address]-11-2025 08:00-0400Systolic blood mm[Hg]Amish Bradford QUALITY CONTROL DIRECTOR Work Phone: [phone] [place], [place] [address]Kjfoaslbxc00-65-3418 11:01-0400Body flxybf415.2 cmSaura Bradford QUALITY CONTROL DIRECTOR Work Phone: [phone] [place], [place] [address]Vjpjpjikpf07-04-5346 11:01-0400Body mass index (BMI) [Ratio]48.87 kg/m5GqygpAmish Bradford QUALITY CONTROL DIRECTOR Work Phone: [phone] [place], [place] [address]Yqntsxoswo43-51-6788 11:01-0400Body rrocqq245.52 kgAmish Bradford QUALITY CONTROL DIRECTOR Work Phone: [phone] HospitalZibxdpwoyg91-76-3150 11:01-0400Diastolic blood eqmxbvve99 mm[Hg]Amish Bradford QUALITY CONTROL DIRECTOR Work Phone: [phone]06-11-2025 11:01-0400Heart rate89 /min Amish Bradford QUALITY CONTROL DIRECTOR Work Phone: [phone] [address]Ubojcseyoo22-09-7558 11:01-1120YwR7% (BldA) [Mass fraction]97 %Amish Bradford QUALITY CONTROL DIRECTOR Work Phone: [phone] [address]Mnkaogmphj78-86-2474 11:01-0400Systolic blood vpqzhvic693 mm[Hg]Amish Bradford QUALITY CONTROL DIRECTOR Work Phone: [facility] HospitalQmlpdcamzo29-84-4827 08:04-0400Body erftsu267.2 cmSaura Bradford QUALITY CONTROL DIRECTOR Work Phone: [phone] HospitalFokdxdszpm10-35-3709 08:04-0400Body mass index (BMI) [Ratio]48.9 kg/u0LdirwAmish Bradford QUALITY CONTROL DIRECTOR Work Phone: [phone] HospitalChgurursqn94-27-3182 08:04-0400Body eurkuw576.61 kgAmish Bradford QUALITY CONTROL DIRECTOR Work Phone: [phone] HospitalVaolojwfog95-80-6564 08:04-0400Diastolic blood gwnleasz07 mm[Hg]Amish Bradford QUALITY CONTROL DIRECTOR Work Phone: [phone] HospitalVezdocwlna97-37-7652 08:04-0400Heart rate80 /min Amish Bradford QUALITY CONTROL DIRECTOR Work Phone: [phone] [place], [place] [address]Xvanykazec42-98-1183 08:04-8890AbF2% (BldA) [Mass fraction]96 %Amish Bradford QUALITY CONTROL DIRECTOR Work Phone: [phone] HospitalCjjismwsfw72-90-4850 08:04-0400Systolic blood azmuaxba290 mm[Hg]Amish Bradford QUALITY CONTROL DIRECTOR Work Phone: [phone] HospitalLovbtoykvj46-22-2921 14:25-0500Body qbeolj447.18 [facility]02-26-2025 14:25-0500Body mass index (BMI) [Ratio]48.7 kg/h5TggnhgipaProtestant Deaconess Hospital02-26-2025 14:25-0500Body hdievhdmqfe92.8 [degF][facility]02-26-2025 14:25-0500Body ranyiv218.23 kgProtestant Deaconess Hospital02-26-2025 14:25-0500Diastolic blood ijntrfef51 mm[Hg][facility]02-26-2025 14:25-0500 Heart rate84 /[facility]02-26-2025 14:25-0500 Respiratory rate17 /[facility]02-26-2025 14:25-0500 SaO2% (BldA) [Mass fraction]98 %[facility]02-26-2025 14:25-0500Systolic blood wvhogdmv035 mm[Hg][facility] 06-05-2024 18:29-0500Body jauuwa056.2 Tin Bradford QUALITY CONTROL DIRECTOR Work Phone: [facility] HospitalHpozdcguzs32-07-6441 18:29-0500Body mass index (BMI) [Ratio]48.62 kg/d5YzwtdAmish Bradford QUALITY CONTROL DIRECTOR Work Phone: [facility] HospitalErbuvddwbe72-67-7175 18:29-0500Body pwqbro554.8 kgAmish Bradford QUALITY CONTROL DIRECTOR Work Phone: [facility] HospitalXiafnkxxbr77-39-9761 18:29-0500Diastolic blood nwhthyby37 mm[Hg]Amish Bradford QUALITY CONTROL DIRECTOR Work Phone: [facility] HospitalGwhsyvpexy24-97-7064 18:29-0500Heart rate80 /min Amish Bradford QUALITY CONTROL DIRECTOR Work Phone: [phone] HospitalMhsiakhwtb66-85-0980 18:29-5138OpD0% (BldA) [Mass fraction]97 %Amish Bradford QUALITY CONTROL DIRECTOR Work Phone: [facility] HospitalQnvvbwbkpt11-17-1983 18:29-0500Systolic blood chwvjxun782 mm[Hg]Amish Bradford QUALITY CONTROL DIRECTOR Work Phone: [facility] HospitalFhzccvsvwf40-09-9860 08:46-0500Body mass index (BMI) [Ratio]48.24 kg/q3Gudto Edwadr DO Work Phone: [facility] HospitalPqbjbutasb93-79-9570 08:46-0500Body itrmpg929.71 kgCorey Edward DO Work Phone: [facility] HospitalFysodvxepn20-46-3318 08:46-0500Diastolic blood glvcrimk34 mm[Hg]Sundar Edward DO Work Phone: [facility] HospitalUyqxyzlykf20-85-2346 08:46-0500Systolic blood kmewknvd966 mm[Hg]Sundar Edward DO Work Phone: [facility] HospitalIelatnrnrp00-07-6914 10:45-0400Body viztye716.91 cmAmbchristi Mcclure Other [place] [employer] Other 04-30-2023 10:45-0400Body mass index (BMI) [Ratio] 49.28 kg/d0VvnspSadie Mcclure Other [place] [employer] Other 04-30-2023 10:45-0400Body zkinwfnjuyc23.5 [degF]Sadie Mcclure Other [facility] [employer] Other 04-30-2023 10:45-0400Body uaious933.62 kgHannachristi Ren Other [place] [employer] Other 04-30-2023 10:45-0400Diastolic blood qoyewasz81 mm[Hg] Sadie Mcclure Other [facility] [employer] Other 04-30-2023 10:45-0400Respiratory rate18 /minAmbchristi Mcclure Other [place] [employer] Other 04-30-2023 10:45-0899JrH7% (BldA) [Mass fraction]98 % Sadie Mcclure Other [place] [employer] Other 04-30-2023 10:45-0400Systolic blood eyggbtfv087 mm[Hg] Sadie Mcclure Other [facility] [employer] Other Encounters Encounter DateEncounter TypeCare ProviderFacilityStart: 05-14-2025 End: 33-02-1369Imxzge flowsheetChdax Yee NP Work Phone: [facility] MedicineStart: 05-14-2025 End: 97-20-8498Sytiwk flowsheetChristy Mony Jarrod QUALITY CONTROL DIRECTOR Work Phone: [facility] MedicineStart: 05-14-2025 End: 08-09-4784Ppqqhe outpatient visit 25 minutesChristy Mony Johnsonbrennanblairpedro QUALITY CONTROL DIRECTOR Work Phone: [facility] MedicineComment on above: Bronchitis (Primary Dx); Acute left otitis mediaStart: 05-14-2025 End: 29-20-1669gzghghxmgtDZWPBDW A Gudelia AvailableStart: 01-18-2025 End: 01-02-5631Btjihq Piercesebas Bradford QUALITY CONTROL DIRECTOR Work Phone: [facility] FNR FMStart: 01-18-2025 End: 59-62-4610Uilirt marilinheetSaura Bradford QUALITY CONTROL DIRECTOR Work Phone: [facility] FMStart: 01-18-2025 End: 56-11-8405Uqgqbq outpatient visit 25 minutesSataryn Bradford QUALITY CONTROL DIRECTOR Work Phone: [facility] FNR FMComment on above:Morbid obesity (CMS-HCC) (Primary Dx); Dental abscessStart: 01-18-2025 End: 48-81-3309ktvtboegibRBKWH KAMPFERNot AvailableStart: 12-21-2024 End: 35-48-9425Gcnzsz OnlyAmish Bradford QUALITY CONTROL DIRECTOR Work Phone: [facility] FNR FMComment on above:Acute cough (Primary Dx); Acute bronchitis, unspecified organismStart: 12-19-2024 End: 01-80-5364Hfcbso marilinMario Bradford QUALITY CONTROL DIRECTOR Work Phone: [facility] FMStart: 12-19-2024 End: 62-79-6301Qtiuqymehreen Bradford QUALITY CONTROL DIRECTOR Work Phone: [facility]NR FMStart: 12-19-2024 End: 08-24-8668Mpuqmb outpatient visit 15 minutesSataryn Bradford QUALITY CONTROL DIRECTOR Work Phone: [facility] FNR FMComment on above:Viral URI (Primary Dx) Start: 12-19-2024 End: 97-38-7500jcvoxdktxrAHUYK KAMPFERNot AvailableStart: 12-14-2024 End: 22-95-9503Chnisj flowsMario Neffdileepjordan QUALITY CONTROL DIRECTOR Work Phone: [facility] FNR FMStart: 12-14-2024 End: 75-02-6145Ycbbvr flowsMylaaura Sagastumejordan QUALITY CONTROL DIRECTOR Work Phone: [facility] FNR FMStart: 12-14-2024 End: 06-34-4865Ysmwul outpatient visit 25 minutesSataryn Bradford QUALITY CONTROL DIRECTOR Work Phone: [facility] FNR FMComment on above:Primary hypertension (CMS/HCC) (Primary Dx); Morbid obesity (CMS/HCC)Start: 12-14-2024 End: 69-47-0957pqmyozfwqaPIGCD KAMPFERNot AvailableStart: 12-12-2024 End: 31-02-9980Vqzhepkpp encounterClementine Goodrich MD Work Phone: [facility] FNR FMStart: 12-11-2024 End: 13-12-7210VqumdhPkyosgtk Hohman MD Work Phone: [facility] FNR FMComment on above:Morbid obesity (CMS/HCC) Start: 10-26-2024 End: 02-18-0697FntutnKfnrj Kampfer QUALITY CONTROL DIRECTOR Work Phone: [facility] FNR FMComment on above:Morbid obesity (CMS/HCC) Start: 09-05-2024 End: 12-38-9809afbqxmrpxqLaoktoawjSt. Anthony's Hospital Work Phone: Start: 09-05-2024 End: 84-37-4901Wowxigf encounter [facility] Work Phone: Start: 08-30-2024 End: 21-32-3615UwjypwVzhkz Kampfer QUALITY CONTROL DIRECTOR Work Phone: [facility] FNR FMComment on above:Morbid obesity (CMS/HCC) Start: 06-23-2024 End: 13-13-4851XjegynZijhd Tainkajordan QUALITY CONTROL DIRECTOR Work Phone: NOXB FNR FMComment on above:Morbid obesity (CMS/HCC) Start: 06-22-2024 End: 45-78-6909UeocceFicxavtv Hohman MD Work Phone: [facility] FNR FMComment on above:Anxiety and depression (CMS/HCC)Start: 06-21-2024 End: 44-56-0406Eyusda OnlyAmish Bradford QUALITY CONTROL DIRECTOR Work Phone: NOFV FNR FMComment on above:Mixed hyperlipidemia (CMS/HCC)Start: 06-05-2024 End: 43-85-1130Qshvhfe encounter statussebas Tanikajordan QUALITY CONTROL DIRECTOR Work Phone: [facility] Work Phone: Start: 06-05-2024 End: 83-36-4432Esahvane preventive med est patient 40-64yrSamsonaura Bradford QUALITY CONTROL DIRECTOR Work Phone: NOFN FNR FMComment on above:Encounter for wellness examination (Primary Dx); Mixed hyperlipidemia (CMS/HCC); Prediabetes; Primary hypertension (CMS/HCC); Nasal congestion; Morbid obesity (CMS/HCC)Start: 06-05-2024 End: 51-61-5945zrbtbjupfdPPBEE KAMPFERNot AvailableStart: 06-05-2024 End: 50-46-7534Axpclm marilinMario Bradford QUALITY CONTROL DIRECTOR Work Phone: [facility] FNR FMStart: 06-05-2024 End: 27-09-4550Wqdvyo Scooteraura Sagastumejordan QUALITY CONTROL DIRECTOR Work Phone: [facility] FNR FMStart: 05-30-2024 End: 96-89-1362Mzjqcjahy Result EncounterGeneric External Data ProviderNOMS External Department UnsolicitedStart: 05-30-2024 End: 02-66-9640Mukcxxkrc Result EncounterGeneric External Data ProviderNOMS External Department UnsolicitedStart: 05-17-2024 End: 45-62-2936Pnnzqa flowsheetCorey Edward DO Work Phone: [facility] BCP OBStart: 05-17-2024 End: 01-49-5734Biovki flowsheetCorey Edward DO Work Phone: [facility] BCP OBStart: 05-17-2024 End: 82-99-3232Nvdnjvnzf Result EncounterCorey Edward DO Work Phone: [facility] External Department UnsolicitedStart: 05-17-2024 End: 63-08-2328Zaahhym encounter procedureCorey Edward DO Work Phone: [facility] Work Phone: Start: 05-17-2024 End: 29-64-8137Vlkmiagw preventive med est patient 40-64yrsCorey Edward DO Work Phone: [facility] BCP OBComment on above:Well woman exam with routine gynecological exam; Breast cancer screening by mammogramStart: 05-17-2024 End: 94-25-1692kavysmxiysYSWVB FAZIONot AvailableStart: 12-98-3044Pkmosk flowsheetChristy A Diamond QUALITY CONTROL DIRECTOR Work Phone: [facility] FNR FMStart: 89-32-5134Qihlxm flowsheetChristy A Diamond QUALITY CONTROL DIRECTOR Work Phone: [facility] FNR FMStart: 79-92-5974Ikiurfvgr encounter Clementine Goodrich MD Work Phone: [facility] FNR FMStart: 81-76-4593IwqjrkVzyep Kampfer NP Work Phone: noMS FNR FMComment on above:Primary hypertension (CMS/HCC); Morbid obesity (CMS/HCC)Start: 11-11-2022 End: 48-64-0770fuakjsqkmpPwqnf Keller Other [place] [employer] Other Start: 57-70-8852Gblhjpbmy encounterSadie [facility] Hospitaltart: 11-07-2022 End: 37-43-6383hyvheomsdpFfjmq Keller Other [place] [employer] Other Start: 18-82-2432Ygvwze outpatient new 30 minutesAmber RenFPG Urgent Care ClydeStart: 05-20-2022 End: 72-32-1393cjyzdeslipNB GEM Escob[place] WESTFacility:M4Lzahj: 05-05-2022 End: 39-84-5128saywckhxjbOA SUNDAR FAZIOFacility:H1 Procedures DateProcedureProcedure DetailPerforming ClinicianStart: 99-42-7101DW TOMOSYNTHESIS SCREENING BIGeneric External Data ProviderStart: 05-30-2024 MammographyCorey Edward DO Work Phone: Start: 56-69-6090RSN,APTIMA HPV,AGE GDLNGeneric External Data ProviderStart: 47-44-0589Cxecjjavchq observation [Identifier] in Cervix by Cyto stainCorekortney Edward DO Work Phone: Start: 62-17-3323DhpwroobpxgFlntz Kampfer NP Work Phone: Start: 39-07-6577Jotmvjgbmdd observation [Identifier] in Cervix by Cyto Yohana Bradford NP Work Phone: Plan of Treatment DateCare ActivityDetailAuthorStart: 72-96-8534Psnfswduk for malignant neoplasm of cervixNOMS HealthcareStart: 04-57-3104Ishavajro vaccinationInfluenza Vaccine (#1)[facility] HealthcareComment on above:Postponed from 03/11/2025 (Patient Refused) Start: 07-24-2025 End: 20-74-8325Vnkivcj encounter khmugfrnc69/14/2026 8:00 AM EST Office Visit [facility] Medicine [address] [facility] [place] [address] Amish Bradford NP [address] [place] [id number] [facility] Centertart: 07-15-2025 End: 11-32-3747Tnntbob encounter procedureNOMS FNR FMStart: 87-32-0134Djohonbch for malignant neoplasm of breastMammogramNOMS HealthcareStart: 05-30-2025 End: 43-66-1506Kilzzcr encounter bcjzeycse61/20/2025 8:30 AM EST Office Visit [facility] [address] [place] [phone] Sundar Leon, DO [address] [place], [place] [address] NOMDre CARTERGYNStart: 05-21-2025 End: 61-37-8425Gmuwoln encounter poywfclrw44/11/2025 8:30 AM EST Office Visit [facility] [address] [place] [phone] Sundar Leon, DO [address] [place], [place] [address] [facility] OBStart: 05-14-2025 End: 97-87-6141Husugin encounter vmokpbspi77/04/2025 8:30 AM EST Office Visit [facility] [address] [place] [phone] Morelia Yee NP [address] [place] [address] ArrivedAdventHealth North PinellasComment on above: ArrivedStart: 53-90-8239Gdtlbqrey for malignant neoplasm of cervixNOMS HealthcareStart: 24-79-8540GLBIU-19 Vaccine ( season)COVID-19 Vaccine ( season)NOM HealthcareStart: 43-02-7052Vruznefyg vaccination Influenza Vaccine (#1)[facility]OM HealthcareStart: 01-18-2025 End: 94-59-2371Uyxsaft encounter procedureNOMS FNR FMComment on above:Arrived Start: 12-19-2024 End: 18-13-2511Sdurmzp encounter rafizroim80/11/2025 11:00 AM EDT Office Visit [facility] [address] [facility] [place] [phone] TanikaAmish ortegaMIKAL [address] [facility] [place] [address] ArrivedNOMS FNR FMComment on above:ArrivedStart: 12-14-2024 End: 05-03-7178Tnoehlnplyltb metabolic 2000 panel - Serum or PlasmaComprehensive metabolic panel Lab Routine Morbid obesity (CMS/HCC) Primary hypertension (CMS/HCC) Expected: 12/14/2024 (Approximate), Expires: 12/14/2025[facility] Work Phone: Comment on above:Expected: 12/14/2024 (Approximate), Expires: 12/14/2025Start: 12-14-2024 End: 01-20-9107Aqhzbjq encounter procedureNOMS FNR FMComment on above:Arrived Start: 09-19-2024 End: 62-63-6090Qvlbj 1996 panel - Serum or PlasmaLipid panel Lab Routine Mixed hyperlipidemia (CMS/HCC) Expected: 09/19/2024 (Approximate), Expires:06/21/2025 [facility] Work Phone: Comment on above:Expected: 09/19/2024 (Approximate), Expires: 06/21/2025Start: 06-05-2024 End: 95-97-7071Thdhcsx encounter procedureNOMS FNR FMComment on above:Arrived Start: 06-05-2024 End: 26-91-1791Qyonmzcyhcgoh metabolic 2000 panel - Serum or PlasmaComprehensive metabolic panel Lab Routine Encounter for wellness examination Prediabetes Primary hypertension (CMS/HCC) Morbid obesity (CMS/HCC) Expected: 06/05/2024 (Approximate), Expires: 06/05/2025[facility] HealthcareComment on above:Expected: 06/05/2024 (Approximate), Expires: 06/05/2025Start: 06-05-2024 End: 31-78-2100Craobgfnmv A1c/Hemoglobin.total in BloodHemoglobin A1c Lab Routine Encounter for wellness examination Prediabetes Morbid obesity (CMS/HCC) Expected: 06/05/2024 (Approximate), Expires: 06/05/2025NONV HealthcareComment on above:Expected: 06/05/2024 (Approximate), Expires: 06/05/2025Start: 06-05-2024 End: 62-35-4958Tfwir 1996 panel - Serum or PlasmaLipid panel Lab Routine Encounter for wellness examination Mixed hyperlipidemia (CMS/HCC) Prediabetes Primary hypertension (CMS/HCC) Morbid obesity (CMS/HCC) Expected: 06/05/2024 (Approximate), Expires: 06/05/2025[facility] Healthcare Work Phone: Comment on above:Expected: 06/05/2024 (Approximate), Expires: 06/05/2025Start: 06-05-2024 End: 86-72-0763YNW W/REFLEX TO FT4TSH W/REFLEX TO FT4 Lab Routine Encounter for wellness examination Morbid obesity (CMS/HCC) Expected: 06/05/2024 (Approximate), Expires: 06/05/2025[facility] HealthcareComment on above:Expected: 06/05/2024 (Approximate), Expires: 06/05/2025Start: 09-58-2383Uuwdtgqln for malignant neoplasm of breastMammogramNONV HealthcareStart: 05-17-2024 End: 29-18-2390WL Breast - bilateral ScreeningBilateral screening mammogram Imaging Routine Breast cancer screening by mammogram Expected: 05/17/2024 (Approximate), Expires: 07/17/2025[facility] Healthcare Work Phone: comment on above:Expected: 05/17/2024 (Approximate), Expires: 07/17/2025Start: 05-17-2024 End: 52-65-1080Zhzyfkh encounter procedureNOMS BCP OBComment on above:Arrived Start: 58-36-3994Uxbogwssu vaccinationInfluenza Vaccine (#1)[facility] Start: 08-18-2023 End: 83-31-7153Qzbnpil encounter dqtcyhrlf50/08/2024 4:00 PM EST Office Visit [facility] [address] [facility] [place] [address] Morelia Diamond NP [address] [facility] [place], [place] [id number] [facility] FNR FMComment on above:ArrivedStart: 69-64-3847Kemprqede for malignant neoplasm of cervixHPV/CotestNOMS HealthcareStart: 82-94-0508Nckzksqpv for malignant neoplasm of colonNONV HealthcareTHIN PREP TIS PAP AND HR HPV DNA THIN PREP TIS PAP AND HR HPV DNA Pathology and Cytology Routine Well woman exam with routine gynecological exam Ordered: 05/17/2024[facility] HospitalComment on above:Ordered: 05/17/2024 Immunizations Immunization DateImmunizationNotesCare XrxpivvaBopnubkg81-17-2547plrdnmdlt, seasonal, injectable, preservative freeSarah Kampfer QUALITY CONTROL DIRECTOR Work Phone: [facility] HospitalSechylagrn47-46-7193jdiaxwvzs virus vaccine, unspecified formulationSarah Kampfer QUALITY CONTROL DIRECTOR Work Phone: [facility] HospitalFkauqyaebm52-68-7358voqqyrfls, injectable, quadrivalent, preservative freeSarah Kampfer QUALITY CONTROL DIRECTOR Work Phone: [facility] HospitalLxgbgwmsod95-78-9826waotcpiky virus vaccine, unspecified formulationCorey Edward DO Work Phone: [facility] HospitalAcvgioqbur55-29-9025moutorlfb, injectable, quadrivalent, preservative freeSarah Kampfer QUALITY CONTROL DIRECTOR Work Phone: [facility] HospitalVffdddoawb01-05-9786laqqylvwm, injectable, quadrivalent, preservative freeSarah Kampfer QUALITY CONTROL DIRECTOR Work Phone: [facility] HospitalNilgrxvfhk88-21-7590sygrdbzjp, injectable, quadrivalent, preservative freeSarah Kampfer QUALITY CONTROL DIRECTOR Work Phone: [facility] HospitalNbdqcvemmo86-14-0405kvnpcdodb, injectable, quadrivalent, contains preservativeSarah Kampfer QUALITY CONTROL DIRECTOR Work Phone: [facility] HospitalPkklumzzpf39-33-1538kulckdw toxoid, reduced diphtheria toxoid, and acellular pertussis vaccine, Isiah Bradford NP Work Phone: [facility] Payers DatePayer CategoryPayerPolicy [id number] [id number] [facility] [id number] 2021-Present [phone] [address] [place] [address] [id number] 2.0.1.120508.3.579.2.60122-69-1407Qmmcnxj8730115 2.0.1.029887.3.57[id number] 2.0.1.437613.3.57[id number] 2.160.1.656017.3.579.[id number] 2.160.1.560123.3.579.2.3[id number] 2.16840.1.068237.3.579.2.[id number] 2.16.840.1.775097.3.57[id number] 2.16.840.1.931575.3.579.2.42[id number] Social History DateTypeDetailFacilityUnknown if ever smokedNocenterpointe hospital [employer] Other Start: 04-10-2023 End: 64-58-3783Tee Assigned At BirthNONV HealthcareStart: 30-31-4770Wrrrqft smoking status NHISNever smoked tobaccoNOMS HealthcareStart: 16-96-8977Lomsfrm use and exposureSmokeless tobacco non-userNOMS HealthcareStart: 05-20-2023 End: 65-33-5166Ybiwftl intakeCurrent drinker of alcohol (finding)[facility] Healthcare Start: 04-10-2023 End: 19-49-4484Spmezvi of Social functionNOMS HealthcareWithin the last year, have you been afraid of your partner or ex-partner?NoNOMS HealthcareStart: 80-33-4806Fkcxglf Club or Organization MeetingsNot on [facility] systemNONV HealthcareAre you now , , , , never or living with a partner?MarriedNOMS HealthcareHow often to you have a drink containing alcohol? Monthly or lessNOMS HealthcareHow many standard drinks containing alcohol do you have on a typical day?1 or 2NOMS HealthcareHow often do you have 6 or more drinks on 1 occasion?NeverNOMS HealthcareDo you feel stress - tense, restless, nervous, or anxious, or unable to sleep at night because yourmind is troubled all the time - these days [OSQ]Not at allNOMS Healthcare(I/We) worried whether (my/our) food would run out before (I/we) got money to buy more.Never trueNOMS HealthcareStart: 88-26-5918Yqyieza Commentcaffeine: 1-2 cups/day coffee, soda [facility] HealthcareStart: 49-64-2276Bjt Assigned At BirthNot on fileST. MARK'S HOSPITAL Healthcare Start: 08-18-2023 End: 81-16-1314Fseyddo CommentSocial drinker once a month or lessST. MARK'S HOSPITAL Healthcare Start: 69-59-4062Gmszmzn CommentSocial drinker once a month or less; caffeiene intake: 1 cup of coffee dailyST. MARK'S HOSPITAL HealthcareStart: 96-44-1128Wox assigned at birthFeMedical Center of Western [facility] HealthcareStart: 58-31-3424Oejxdv identityIdentifies as female gender (finding)[facility] HealthcareStart: 87-13-9329Azllte orientationHeterosexual (finding)NOM HealthcareDo you belong to any clubs or organizations such as advent groups, unions, fraternal or athletic groups, or school groups?YesBates County Memorial HospitalTobacco smoking status NHISUnknown if ever smokedTrumbull Memorial Hospital Work Phone: Start: 97-55-9152JhcIvoqdf (finding)[facility] Goals DatePatient GoalDesired Activity/StatePersonal health goal Functional Status PwqfQkeslcozhxGyejtnQouecter85-68-7573Btsyrsw Health Questionnaire 2 item (PHQ- 2) [Reported][facility] HospitalUmjmdczvlb18-87-6329Xvhducs Health Questionnaire 2 item (PHQ- 2) [Reported][facility] HospitalIzdrkfneev49-04-6282LPS-3 quick depression assessment panel [Reported.PHQ][facility] HospitalKhxpkslcub10-57-1450Mkjoqcxixbp anxiety disorder 7 item (GIANNI-7)[facility] HospitalSbjxwvjbhi93-49-2579Nowgjft Health Questionnaire 2 item (PHQ-2) [Reported][facility] HospitalBlsclxtcdi63-50-5286Ioosiwfkkqm anxiety disorder 7 item (GIANNI-7) [facility] HospitalVxveidggoz20-93-6607Ubrsq score [AUDIT-C]1 06/02/2024 8:06 PM EST Mychart, GenericBates County Memorial HospitalDjjomeneta27-47-1551Puv often do you have a drink containing alcohol?Monthly or less 06/02/2024 8:06 PM EST Mychart, Generic Monthly or less [facility] HospitalQwmjzxjuwj77-15-0039Jut many standard drinks containing alcohol do you have on a typical day?1 or 2 06/02/2024 8:06 PM EST Mychart, Generic 1 or 2NOMS Daglulwqsr34-48-7687Rwo often do you have 6 or more drinks on 1 occasion?Never 06/02/2024 8:06 PM EST Mychart, Generic [facility] Clinical Notes 11-07-2022 to 05-14-2025 Note Date & JosdGwrhIcfvnkdl65-72-5256 History of Present illness Narrative* Morelia Mony Yee, QUALITY CONTROL DIRECTOR - 05/14/2025 8:30 AM EST Subjective ?Quick Links Last Note in Specialty Snapshot Edit RFV/CC Edit Screenings Current Meds Patient ID: Clementine Enriquez is a 45 y.o. female who presents for URI. HPI History of Present Illness The patient presents for evaluation of a cough. She reports the onset of a non-productive, barking cough since Tuesday, which has been causing discomfort in her lungs and shoulders. She has not been utilizing her inhaler. She suspects that her current symptoms may be related to an illness her experienced two weeks prior, although he continues to have a residual cough. Additionally, she experiences sinus pressure and headaches. She has been self-medicating with Ernestina-Wynona Cold and Flu, but transitioned to Mucinex 12 yesterday. ?Quick Review Review Full History Edit History Meds - Current Medications[1] --- PMH - Abnormality of breast on screening mammography Allergic Headache Hypertension Menorrhagia Obesity Seasonal allergies Varicella Visual impairment Objective ?Quick Links Add Vitals Timeline (Adult) Labs Imaging Results Review Trend Vitals ?? Avoid pulling in long tables of results. Comment on relevant results to support your medical decision making. There were no vitals taken for this visit. Review of Systems Constitutional: Positive for fatigue. HENT: Positive for congestion, rhinorrhea and sore throat. Respiratory: Positive for cough. Negative for shortness of breath and wheezing. Cardiovascular: Negative for chest pain and palpitations. Gastrointestinal: Negative. Musculoskeletal: Negative. Skin: Negative. Neurological: Negative. Physical Exam Vitals and nursing note reviewed. Constitutional: Appearance: She is well-developed. HENT: Head: Normocephalic. Right Ear: Hearing normal. A middle ear effusion is present. Left Ear: Hearing normal. A middle ear effusion is present. Tympanic membrane is injected. Nose: Congestion and rhinorrhea present. Rhinorrhea is purulent. Mouth/Throat: Mouth: Mucous membranes are moist. Pharynx: Posterior oropharyngeal erythema present. No oropharyngeal exudate. Tonsils: No tonsillar exudate. Cardiovascular: Rate and Rhythm: Normal rate and regular rhythm. Heart sounds: Normal heart sounds. Pulmonary: Effort: Pulmonary effort is normal. Breath sounds: Examination of the right-lower field reveals decreased breath sounds. Examination ofthe left-lower field reveals decreased breath sounds. Decreased breath sounds present. Abdominal: General: Abdomen is flat. There is no distension. Tenderness: There is no abdominal tenderness. Musculoskeletal: Cervical back: Neck supple. Lymphadenopathy: Cervical: Right cervical: No superficial cervical adenopathy. Left cervical: No superficial cervical adenopathy. Skin: General: Skin is warm. Capillary Refill: Capillary refill takes less than 2 seconds. Neurological: General: No focal deficit present. Mental Status: She is alert and oriented to person, place, and time. Physical Exam Respiratory: Clear to auscultation, no wheezing, rales or rhonchi ?Quick Links Full Problem List Cardiology Hypertension Assessment & Plan Bronchitis Orders: amoxicillin-clavulanate (Augmentin) 875-125 MG tablet; Take 1 tablet (875 mg) by mouth in the morning and 1 tablet (875 mg) before bedtime. Do all this for 7 days. benzonatate (Tessalon Perles) 100 MG capsule; Take 1 capsule (100 mg) by mouth 3 (three) times a day as needed for cough for up to 7 days Do not crush or chew. Acute left otitis media Orders: amoxicillin-clavulanate (Augmentin) 875-125 MG tablet; Take 1 tablet (875 mg) by mouth in the morning and 1 tablet (875 mg) before bedtime. Do all this for 7 days. Other orders Follow Up In Family Medicine; Future Assessment & Plan 1. Cough: - The cough started on 05/10/2025 and is described as a barking cough that hurts the lungs, leg, and shoulders. - The patient is advised to use her inhaler, which may initially exacerbate the cough but will subsequently aid in airway dilation. - A prescription for Tessalon Perles will be provided to manage the cough. She is instructed to either continue with Mucinex or switch to Tessalon Perles, depending on which medication provides the most relief. - The use of a humidifier in her room is recommended. She is also advised to maintain adequate hydration and rest. 2. Suspected bronchitis: - The patient reports that her was sick 2 weeks ago, and she likely contracted the illness from him. - An antibiotic will be prescribed to address the potential bronchitis and associated ear symptoms. - She is advised to monitor her symptoms and seek further medical attention if they worsen or do not improve. 3. Sinus pressure and headaches: - The patient experiences sinus pressure and headaches. - [id number] Flonase is recommended for sinus pressure and headaches. If nasal bleeding occurs, she should discontinue Flonase and switch to normal saline. Diagnoses and all orders for this visit: Bronchitis - amoxicillin-clavulanate (Augmentin) 875-125 MG tablet; Take 1 tablet (875 mg) by mouth in the morning and 1 tablet (875 mg) before bedtime. Do all this for 7 days. - benzonatate (Tessalon Perles) 100 MG capsule; Take 1 capsule (100 mg) by mouth 3 (three) times a day as needed for cough for up to 7 days Do not crush or chew. Acute left otitis media - amoxicillin-clavulanate (Augmentin) 875-125 MG tablet; Take 1 tablet (875 mg) by mouth in the morning and 1 tablet (875 mg) before bedtime. Do all this for 7 days. Other orders - Follow Up In Family Medicine; Future [1] albuterol HFA 90 mcg/act inhaler amoxicillin (Amoxil) 500 MG capsule atorvastatin (Lipitor) 20 MG tablet losartan (Cozaar) 25 MG tablet melatonin 5 MG tablet Multiple Vitamins-Minerals (MULTIVITAMIN GUMMIES ADULT PO) topiramate (Topamax) 25 MG tablet venlafaxine XR (Effexor XR) 37.5 MG 24 hr capsule documented in this encounterBates County [facility] [id number] History of Present illness Narrative* Amish Bradford NP - 01/18/2025 8:00 AM EDTAssociated Problem(s): Morbid obesity ([facility]) Orders: topiramate (Topamax) 25 MG tablet; Take 1 tablet (25 mg) by mouth in the morning and 1 tablet (25 mg) before bedtime. * Amish Bradford NP - 01/18/2025 8:00 AM EDT Images from the original note were not included. Subjective Patient ID: Clementine Enriquez is a 44 y.o. female who presents for Follow-up. HPI History of Present Illness The patient presents for weight management and dental abscess. She has been tolerating Topamax well, with no reported side effects. She notes a decrease in bowel movements, which she does not find concerning. The medication appears to be effective in reducing her cravings. She has been engaging in physical activity, specifically walking, three times a week. She has been experiencing significant tooth pain, which led her to seek dental care on 01/14/2025. During this visit, a hole was discovered in a crown that had been placed a few months prior.The dentist had to adjust the crown due to its height and her sensitivity. The adjustment process involved grinding without water, which resulted in a small hole. The dentist suspects an infection asthe pain extends from her jaw to her ear. She was prescribed amoxicillin, which she started taking on 01/14/2025. She was advised to take the medication every 8 hours as needed, but she has been taking it three times daily until the course is completed. She was also referred to an hr leader for apotential root canal. Her appointment with the hr leader is scheduled for 01/28/2025 at 8 AM. Shewas advised to continue the antibiotic if she experiences pain. Prior to starting amoxicillin, she was managing her pain with Tylenol and ibuprofen, taken alternately multiple times a day. Objective BP (!) 136/92 (BP Location: Right arm, Patient Position: Sitting, BP Cuff Size: Large adult) Pulse 80 Wt 314 lb SpO2 97% BMI 49.18 kg/m Physical Exam Vitals reviewed. Constitutional: Appearance: She is obese. HENT: Head: Normocephalic and atraumatic. Mouth/Throat: Mouth: Mucous membranes are moist. Eyes: Pupils: Pupils are equal, round, and reactive to light. Cardiovascular: Rate and Rhythm: Normal rate and regular rhythm. Pulses: Normal pulses. Heart sounds: Normal heart sounds. Pulmonary: Effort: Pulmonary effort is normal. Breath sounds: Normal breath sounds. Musculoskeletal: Cervical back: Normal range of motion and neck supple. Right lower leg: No edema. Left lower leg: No edema. Skin: General: Skin is warm and dry. Capillary Refill: Capillary refill takes less than 2 seconds. Findings: No rash. Neurological: General: No focal deficit present. Mental Status: She is alert and oriented to person, place, and time. Physical Exam Assessment & Plan Morbid obesity ([facility]) Orders: topiramate (Topamax) 25 MG tablet; Take 1 tablet (25 mg) by mouth in the morning and 1 tablet (25 mg) before bedtime. Assessment & Plan 1. Weight management. - Reports that Topamax has been effective in curbing cravings without significant side effects. - Continues with the current regimen of Topamax, taken twice daily. - Prescription for Topamax will be sent to pharmacy. - Advised to gradually increase walking exercise from three to five times a week. 2. Dental abscess. - Currently on amoxicillin 500 mg three times a day for a suspected dental abscess. - Will complete the course of antibiotics by 01/28/2025, before the appointment with the hr leader. - Advised to contact the office if the infection persists for a prescription of doxycycline, to be taken with food to avoid nausea and increased sun sensitivity. - Reports reduced need for alternating Tylenol and ibuprofen due to improvement in symptoms. Follow-up - A follow-up visit is scheduled in 6 months. documented in this [facility]06-11-2025 History of Present illness Narrative* Amish Bradford NP - 12/19/2024 11:00 AM EDT Images from the original note were not included. Clementine Enriquez is a 44 y.o. female presents with chief complaint of URI (Sx started tuesday) HPI: URI Associated symptoms include congestion, coughing, headaches, rhinorrhea and a sore throat. History of Present Illness The patient presents for evaluation of a sore throat. She began experiencing symptoms on Tuesday, initially presenting as a sore throat and frequent sneezing. These symptoms were accompanied by sinus congestion, headache, ear fullness, and a dry cough that exacerbated her throat discomfort. She reports no fever. She has been self-medicating with [id number] Sudafed, which provides relief when taken consistently. However, she experienced a severecoughing episode at 3:00 AM last night, prompting her to seek medical attention. She has not used Flonase. She recalls potential exposure to sick individuals during a casino visit on Tuesday and an event on Tuesday. Over the past 2 weeks, how often have you been bothered by any of the following problems? Little interest or pleasure in doing things: Not at all Feeling down, depressed, or hopeless: Not at all Trouble falling or staying asleep, or sleeping too much: Not at all Feeling tired or having little energy: Not at all Poor appetite or overeating: Not at all Feeling bad about yourself - or that you are a failure or have let yourself or your family down: Not at all Trouble concentrating on things, such as reading the newspaper or watching television: Not at all Moving or speaking so slowly that other people could have noticed? Or the opposite - being so fidgety or restless that you have been moving around a lot more than usual.: Not at all Thoughts that you would be better off or hurting yourself in some way: Not at all Patient Health Questionnaire-9 Score: 0 Over the last 2 weeks, how often have you been bothered by any of the following problems? Feeling nervous, anxious, or on edge: Not at all Not being able to stop or control worrying: Not at all Worrying too much about different things: Not at all Trouble relaxing: Not at all Being so restless that it is hard to sit still: Not at all Becoming easily annoyed or irritable: Several days Feeling afraid as if something awful might happen: Not at all GIANNI-7 Total Score: 1 SUBJECTIVE: MEDICATIONS: Current Outpatient Medications Medication Instructions atorvastatin (LIPITOR) 20 mg, Oral, Daily losartan (COZAAR) 25 mg, Oral, Every morning melatonin 5 MG tablet Every 24 hours Multiple Vitamins-Minerals (MULTIVITAMIN GUMMIES ADULT PO) Take by mouth. topiramate (Topamax) 25 MG tablet Take 1 tablet (25 mg) by mouth Daily for 7 days, THEN 1 tablet (25 mg) 2 (two) times a day for 21 days. venlafaxine XR (EFFEXOR XR) 37.5 mg, Oral, Every morning I have reviewed and reconciled the history and medication list with the patient today. REVIEW OF SYMPTOMS: Review of Systems Constitutional: Positive for fatigue. HENT: Positive for congestion, rhinorrhea, sinus pressure and sore throat. Respiratory: Positive for cough. Neurological: Positive for headaches. OBJECTIVE: Visit Vitals BP 122/68 Pulse 89 Ht 5' 7 Wt 312 lb SpO2 97% BMI 48.87 kg/m OB Status Ablation Smoking Status Never BSA 2.59 m Physical Exam Vitals reviewed. Constitutional: Appearance: She is obese. HENT: Head: Normocephalic and atraumatic. Right Ear: A middle ear effusion is present. Tympanic membrane is not erythematous. Left Ear: A middle ear effusion is present. Tympanic membrane is not erythematous. Nose: Congestion present. Right Turbinates: Swollen. Left Turbinates: Swollen. Right Sinus: No maxillary sinus tenderness or frontal sinus tenderness. Left Sinus: No maxillary sinus tenderness or frontal sinus tenderness. Mouth/Throat: Mouth: Mucous membranes are moist. Pharynx: Postnasal drip present. Eyes: Pupils: Pupils are equal, round, and reactive to light. Cardiovascular: Rate and Rhythm: Normal rate and regular rhythm. Pulses: Normal pulses. Heart sounds: Normal heart sounds. Pulmonary: Effort: Pulmonary effort is normal. Breath sounds: Normal breath sounds. Musculoskeletal: Cervical back: Normal range of motion and neck supple. Right lower leg: No edema. Left lower leg: No edema. Skin: General: Skin is warm and dry. Capillary Refill: Capillary refill takes less than 2 seconds. Findings: No rash. Neurological: General: No focal deficit present. Mental Status: She is alert and oriented to person, place, and time. ASSESSMENT AND PLAN: Assessment/Plan Diagnoses and all orders for this visit: Viral URI -Most likely viral in nature, will need to run its course. Educated patient viral infections such as colds/flus do not respond to abx and typically do not begin to improve until 7-10 days into the illness. Discussed symptomatic treatment with patient. Humidifier at bedside to moisten area. Push fluids. Rest. Good handwashing. Follow up if symptoms do not improve. To ER for markedly worsening symptoms. documented in this encounterBates County Memorial [id number] History of Present illness Narrative* Amish Bradford NP - 12/14/2024 8:00 AM EDT Images from the original note were not included. Clementine Enriquez is a 44 y.o. female presents with chief complaint of Med Refill HPI: HPI History of Present Illness The patient presents for weight loss and blood pressure management. She reports no significant progress in her weight loss journey despite being on Wellbutrin and naltrexone. She has not yet explored the option of injections for weight loss and prefers to try Topamaxfirst. Her physical activity includes walking at least 3 days a week. She recently picked up a second job, which has impacted her schedule. She did not take her blood pressure medication this morning. She has not undergone a sleep study due to insurance coverage issues. SOCIAL HISTORY She works at [email or web address] SUBJECTIVE: MEDICATIONS: Current Outpatient Medications Medication Instructions atorvastatin (LIPITOR) 20 mg, Oral, Daily buPROPion (Wellbutrin) 100 MG tablet TAKE 1 TABLET BY MOUTH EVERY MORNING AND TAKE 1 TABLET BY MOUTH DAILY BEFORE BEDTIME losartan (COZAAR) 25 mg, Oral, Every morning melatonin 5 MG tablet Every 24 hours Multiple Vitamins-Minerals (MULTIVITAMIN GUMMIES ADULT PO) Take by mouth. naltrexone (Depade) 50 MG tablet TAKE A HALF TABLET BY MOUTH DAILY venlafaxine XR (EFFEXOR XR) 37.5 mg, Oral, Every morning I have reviewed and reconciled the history and medication list with the patient today. REVIEW OF SYMPTOMS: Review of Systems OBJECTIVE: Visit Vitals BP 140/84 Pulse 80 Ht 5' 7 Wt 312 lb 3.2 oz SpO2 96% BMI 48.90 kg/m OB Status Ablation Smoking Status Never BSA 2.59 m Physical Exam Vitals reviewed. Constitutional: Appearance: She is obese. HENT: Head: Normocephalic and atraumatic. Mouth/Throat: Mouth: Mucous membranes are moist. Eyes: Pupils: Pupils are equal, round, and reactive to light. Cardiovascular: Rate and Rhythm: Normal rate and regular rhythm. Pulses: Normal pulses. Heart sounds: Normal heart sounds. Pulmonary: Effort: Pulmonary effort is normal. Breath sounds: Normal breath sounds. Musculoskeletal: Cervical back: Normal range of motion and neck supple. Right lower leg: No edema. Left lower leg: No edema. Skin: General: Skin is warm and dry. Capillary Refill: Capillary refill takes less than 2 seconds. Findings: No rash. Neurological: General: No focal deficit present. Mental Status: She is alert and oriented to person, place, and time. ASSESSMENT AND PLAN: Assessment/Plan Diagnoses and all orders for this visit: Primary hypertension (CMS/HCC) - Comprehensive metabolic panel; Future -she did not take her antihypertensives yet which explains the elevated BP today, encouraged to take when she gets home. Discussed current management plan. Goal BP less then 130/80. Discussed heart healthy diet, increase fruits and vegetables, limit salt intake. Encouraged increase physical exercise, try to be as active as possible at least 150 mins per week. Importance of weight management with a goal BMI less then 27 discussed. Discussed complications of uncontrolled blood pressure. Patient instructed to monitor BP's 1-2 times a week, keep a log, and bring to next visit. Barriers to care and medication compliance discussed. Patient voices understanding of meds. Morbid obesity (CMS/HCC) - Comprehensive metabolic panel; Future - topiramate (Topamax) 25 MG tablet; Take 1 tablet (25 mg) by mouth Daily for 7 days, THEN 1 tablet(25 mg) 2 (two) times a day for 21 days. -stop wellbutrin-naltrexone combination. Medications discussed, she would like to hold off on GLP-1at this time, will switch to topamax. Side effects discussed, patient verbalizes understanding and is in agreement with plan. Encouraged to increase physical exercise. documented in this encounterBates County Memorial [id number] Telephone encounter Note* Telephone Encounter - Evette Rai - 12/12/2024 1:38 PM EDT error [facility] [id number] Miscellaneous Notes* Telephone Encounter - Evette Rai - 12/12/2024 1:38 PM EDT error documented in this [facility]06-03-2025 Telephone encounter Note* Telephone Encounter - Ludmila Jones MA - 12/11/2024 12:16 PM EDT I noticed that the patient hasn't been seen since May 2024. Does she need an appointment prior to this refill? [facility] [id number] Miscellaneous Notes* Telephone Encounter - Ludmila Jones MA - 12/11/2024 12:16 PM EDT I noticed that the patient hasn't been seen since May 2024. Does she need an appointment prior to this refill? * Telephone Encounter - Ever Caldwell - 12/11/2024 11:06 AM EDT Is there anything she should be worried about - she has been without for a week . IF no concern -no need to call. Poncho Clementine [phone] documented in this [facility]06-03-2025 Telephone encounter Note* Telephone Encounter - Ever Caldwell - 12/11/2024 11:06 AM EDT Is there anything she should be worried about - she has been without for a week . IF no concern -no need to call. Poncho Clementine [phone] [facility] [id number] Telephone encounter Note* Telephone Encounter - Clementine Goodrich MD - 10/26/2024 11:43 AM EDT Approving, but needs appt for additional refills. [facility] [id number] Miscellaneous Notes* Telephone Encounter - Clementine Goodrich MD - 10/26/2024 11:43 AM EDT Approving, but needs appt for additional refills. documented in this encounterBates County Memorial [id number] History of Present illness Narrative* Amish Bradford NP - 06/05/2024 6:30 PM EST Images from the original note were not included. Clementine Enriquez is a 44 y.o. female presents with chief complaint of Hypertension and Annual Exam HPI: HPI Over the past 2 weeks, how often have you been bothered by any of the following problems? Little interest or pleasure in doing things: Not at all Feeling down, depressed, or hopeless: Not at all Trouble falling or staying asleep, or sleeping too much: Not at all Feeling tired or having little energy: Not at all Poor appetite or overeating: Not at all Feeling bad about yourself - or that you are a failure or have let yourself or your family down: Not at all Trouble concentrating on things, such as reading the newspaper or watching television: Not at all Moving or speaking so slowly that other people could have noticed? Or the opposite - being so fidgety or restless that you have been moving around a lot more than usual.: Not at all Thoughts that you would be better off or hurting yourself in some way: Not at all Patient Health Questionnaire-9 Score: 0 Over the last 2 weeks, how often have you been bothered by any of the following problems? Feeling nervous, anxious, or on edge: Not at all Not being able to stop or control worrying: Not at all Worrying too much about different things: Not at all Trouble relaxing: Not at all Being so restless that it is hard to sit still: Not at all Becoming easily annoyed or irritable: Not at all Feeling afraid as if something awful might happen: Not at all GINANI-7 Total Score: 0 SUBJECTIVE: MEDICATIONS: Current Outpatient Medications Medication Instructions atorvastatin (LIPITOR) 10 mg, Oral, Every morning buPROPion (WELLBUTRIN) 100 mg, Oral, 2 times daily losartan (COZAAR) 25 mg, Oral, Every morning melatonin 5 MG tablet Every 24 hours Multiple Vitamins-Minerals (MULTIVITAMIN GUMMIES ADULT PO) Take by mouth. naltrexone (DEPADE) 25 mg, Oral, Daily venlafaxine XR (EFFEXOR XR) 37.5 mg, Oral, Every morning REVIEW OF SYMPTOMS: Review of Systems OBJECTIVE: Visit Vitals BP 124/80 (BP Location: Left arm, Patient Position: Sitting, BP Cuff Size: Large adult) Pulse 80 Ht 5' 7 Wt 310 lb 6.4 oz SpO2 97% BMI 48.62 kg/m OB Status Ablation Smoking Status Never BSA 2.58 m Physical Exam Vitals reviewed. Constitutional: Appearance: She is obese. HENT: Head: Normocephalic and atraumatic. Right Ear: Tympanic membrane normal. Left Ear: Tympanic membrane normal. Nose: Congestion present. Mouth/Throat: Mouth: Mucous membranes are moist. Pharynx: Postnasal drip present. Eyes: Extraocular Movements: Extraocular movements intact. Pupils: Pupils are equal, round, and reactive to light. Cardiovascular: Rate and Rhythm: Normal rate and regular rhythm. Pulses: Normal pulses. Heart sounds: Normal heart sounds. Pulmonary: Effort: Pulmonary effort is normal. Breath sounds: Normal breath sounds. Abdominal: General: Bowel sounds are normal. Palpations: Abdomen is soft. Tenderness: There is no abdominal tenderness. Musculoskeletal: General: Normal range of motion. Cervical back: Normal range of motion and neck supple. Right lower leg: No edema. Left lower leg: No edema. Skin: General: Skin is warm and dry. Capillary Refill: Capillary refill takes less than 2 seconds. Findings: No rash. Neurological: General: No focal deficit present. Mental Status: She is alert and oriented to person, place, and time. ASSESSMENT AND PLAN: Assessment/Plan Diagnoses and all orders for this visit: Encounter for wellness examination -Wellness performed at today. Height, weight, BMI, problem list, and immunizations records reviewed. Dental care discussed with patient. Encouraged annual vision screenings and semi-annual dental care. Encouraged healthy eating habits, limit or eliminate junk food and sources of excess calories.Encouraged regular periods of exercise, 150 minutes of exercise weekly or amount appropriate to current level of function. Discussed family/friend/social support and importance of maintaining emotional connections. Follow up annually and as needed. Mixed hyperlipidemia (CMS/HCC) -On a statin Prediabetes -Check a1c Primary hypertension (CMS/HCC) -Discussed current management plan. Goal BP less then 130/80. Discussed heart healthy diet, increase fruits and vegetables, limit salt intake. Encouraged increase physical exercise, try to be as active as possible at least 150 mins per week. Importance of weight management with a goal BMI less then27 discussed. Discussed complications of uncontrolled blood pressure. Patient instructed to monitorBP's 1-2 times a week, keep a log, and bring to next visit. Barriers to care and medication compliance discussed. Patient voices understanding of meds. Nasal congestion -Start flonase OTC Morbid obesity (CMS/HCC) -Encourage healthy eating habits, increase physical exercise. Continue bupropion-naltrexone combination documented in this encounterB[facility] [id number] History of Present illness Narrative* Hayde Hoff, MONTSE - 05/17/2024 8:30 AM EST Reason for Appointment: Patient ID: Clementine Enriquez is a 44 y.o. female who presents for Well Women Visit Patient presents today for Annual Exam. MEDICATIONS Current Outpatient Medications Medication Instructions atorvastatin (LIPITOR) 10 mg, Oral, Every morning buPROPion (WELLBUTRIN) 100 mg, Oral, 2 times daily losartan (COZAAR) 25 mg, Oral, Every morning melatonin 5 MG tablet Every 24 hours Multiple Vitamins-Minerals (MULTIVITAMIN GUMMIES ADULT PO) Take by mouth. naltrexone (DEPADE) 25 mg, Oral, Daily venlafaxine XR (EFFEXOR XR) 37.5 mg, Oral, Every morning ALLERGIES Allergies Allergen Reactions Sulfamethoxazole-Trimethoprim Fever, Hives, Itching, Rash and Swelling Other Reaction(s): Unknown PROBLEMS Active Ambulatory Problems Diagnosis Date Noted Acute non intractable tension-type headache 04/18/2023 Atopic dermatitis 04/18/2023 Elevated fasting lipid profile ([facility]/HCC) 04/18/2023 Hyperlipidemia (CMS/HCC) 04/18/2023 Perioral dermatitis 04/18/2023 Resolved Ambulatory Problems Diagnosis Date Noted No Resolved Ambulatory Problems Past Medical History: Diagnosis Date Abnormality of breast on screening mammography Allergic Headache Hypertension (CMS/HCC) Menorrhagia Obesity Seasonal allergies Varicella Visual impairment HISTORY PAST MEDICAL HISTORY SOCIAL HISTORY Past Medical History: Diagnosis Date Abnormality of breast on screening mammography Allergic Headache Hypertension (CMS/HCC) Menorrhagia Obesity Seasonal allergies Varicella Visual impairment Social History Tobacco Use Smoking status: Never Smokeless tobacco: Never Vaping Use Vaping status: Never Used Substance Use Topics Alcohol use: Yes Comment: Social drinker once a month or less; caffeiene intake: 1 cup of coffee daily Drug use: Never FAMILY HISTORY Family History Problem Relation Name Age of Onset Mental illness Mother Lydia Hypertension Mother Lydia Arthritis Mother Lydia Depression Mother Lydia Stroke Mother Lydia Cancer Maternal Grandmother Tamra SURGICAL HISTORY Past Surgical History: Procedure Laterality Date BREAST BIOPSY Left 2020 marker was placed CERVIX SURGERY 2016 polyp removed from cervix ENDOMETRIAL ABLATION OTHER SURGICAL HISTORY 06/2003 LEEP OTHER SURGICAL HISTORY 08/2018 uterine ablation TUBAL LIGATION Bilateral 2009 REVIEW OF SYSTEMS Review of Systems: Review of Systems Constitutional: Negative. HENT: Negative. Eyes: Negative. Respiratory: Negative. Cardiovascular: Negative. Gastrointestinal: Negative. Genitourinary: Negative. Musculoskeletal: Negative. Skin: Negative. Neurological: Negative. All other systems reviewed and are negative. Hematological: Negative. Endocrine: Negative. Allergic/Immunologic: Negative. OBJECTIVE Objective: Physical Exam Constitutional: Appearance: Normal appearance. She is well-developed. Genitourinary: Vulva normal. Breasts: Breasts are soft. Right: Normal. Left: Normal. Cardiovascular: Rate and Rhythm: Normal rate and regular rhythm. Pulmonary: Effort: Pulmonary effort is normal. Breath sounds: Normal breath sounds. Abdominal: General: Bowel sounds are normal. There is no distension. Palpations: Abdomen is soft. Tenderness: There is no abdominal tenderness. There is no guarding or rebound. Musculoskeletal: General: No swelling. Normal range of motion. Right lower leg: No edema. Left lower leg: No edema. Neurological: Mental Status: She is alert and oriented to person, place, and time. Skin: General: Skin is warm and dry. Psychiatric: Mood and Affect: Mood normal. Behavior: Behavior normal. Vitals and nursing note reviewed. Exam conducted with a kinesiotherapist present. Vitals: Estimated body mass index is 48.24 kg/m as calculated from the following: Height as of 24: 5' 7 . Weight as of this encounter: 308 lb. BP: 120/70 No LMP recorded. Patient has had an ablation. ASSESSMENT & PLAN ICD-10-CM 1. Well woman exam with routine gynecological exam Z01.419 THIN PREP TIS PAP AND HR HPV DNA 2. Breast cancer screening by mammogram Z12.31 Bilateral screening mammogram Bilateral screening mammogram Annual: Patient presents today for an annual exam. Patient states she is doing well and has no complaints. Pap was obtained without difficulty and patient given mammogram order to have scheduled/obtained. Orders Placed This Encounter Procedures Bilateral screening mammogram Patient voiced she is still doing well after Ablation and has not had cycles for several years now. Follow Up: Patient is to return in one year for annual unless needed otherwise. Documented by Hayde Hoff LPN on behalf of: Sundar Leon DO documented in this [facility]02-08-2024 Telephone encounter Note* Telephone Encounter - Natasha Petit - 08/18/2023 4:32 PM EST Patient is asking for a work note for tomorrow. She has been sick for 10 days. Yesterday she workeda 13 hour day. Please advise pt. Thank you. [facility] [id number] Miscellaneous Notes* Telephone Encounter - Natasha Petit - 08/18/2023 4:32 PM EST Patient is asking for a work note for tomorrow. She has been sick for 10 days. Yesterday she workeda 13 hour day. Please advise pt. Thank you. documented in this [facility]04-30-2023 Evaluation note* Encounter Date Diagnosis Assessment Notes Treatment Notes Treatment Clinical Notes Oct, Seasonal allergic rhinitis due t o pollen (ICD-10 - J30.1) Advised patient that rapid strep test was negative today in office. No other testing performed at this time. Advised patient to use OTC Zyrtec/Claritin and Flonase for symptom relief. Supportive careas directed, increase fluids and rest, Tylenol/Motrin as [...] treatment plan. Patient left in stable condition. Oct,Laryngitis (ICD-10 - J04.0) Rapid strep test negative today in office. Will send in Rx of Medrol Dosepak to use as directed. Follow above treatment plan recommendations. Oct,Sore throat (ICD-10 - J02.9) [facility] [employer] Other Evaluation noteNo InformationNortHaven [facility] [employer] Other Evaluation note* Diagnosis Primary hypertension (CMS/HCC) Unspecified essential hypertension Morbid obesity (CMS/HCC) Morbid obesity [facility] Diagnosis Well woman exam with routine gynecological exam Routine gynecological examination Breast cancer screening by mammogram [facility] Diagnosis Encounter for wellness examination- Primary Mixed hyperlipidemia (CMS/HCC) Mixed hyperlipidemia Prediabetes Other abnormal glucose Primary hypertension (CMS/HCC) Unspecified essential hypertension Nasal congestion Other diseases of nasal cavity and sinuses Morbid obesity (CMS/HCC) Morbid obesity [facility]* Diagnosis Mixed hyperlipidemia (CMS/HCC) Mixed hyperlipidemia [facility]* Diagnosis Anxiety and depression (CMS/HCC) [facility]* Diagnosis Morbid obesity (CMS/HCC) Morbid obesity [facility] noteNo assessment information availableTrumbull Memorial Hospital Work Phone: Evaluation note* Diagnosis Morbid obesity (CMS/HCC) Morbid obesity [facility]* Diagnosis Morbid obesity (CMS/HCC) Morbid obesity [facility]* Diagnosis Primary hypertension (CMS/HCC)- Primary Unspecified essential hypertension Morbid obesity (CMS/HCC) Morbid obesity [facility]* Diagnosis Viral URI- Primary Acute upper respiratory infections of unspecified site [facility]* Diagnosis Acute cough- Primary Acute bronchitis, unspecified organism [facility]* Diagnosis Morbid obesity (CMS-HCC)- Primary Morbid obesity Dental abscess Periapical abscess without sinus [facility]* Diagnosis Morbid obesity (CMS-HCC)- Primary Morbid obesity Dental abscess Periapical abscess without sinus Bronchitis- Primary Bronchitis, not specified as acute or chronic Acute left otitis media documented [facility] this encounter [facility] general Narrative - Reported* Type Description Date Surgical History LEEP Surgical Historytubal ligationSurgical Historypolypectomy from cervixSurgical Historybreast biopsyHospitalization HistorySee above [employer] Other Summary Purpose Family History No Family History Records FoundNo Family History Records Found Advance Directives No Advanced Directives Records Found Advance Directive Response Recorded Date/ Time Advance Directives No August 2:09pm Chief Complaint and Reason for Visit Chief Complaint Admit Date right ear ache, neck/ gland sore Februar y 2024 2:14pm Additional Source Comments INFORMATION SOURCE (unrecogn ized section and content) DATE CREATED AUTHOR 05/24/2022 [facility] DATE CREATED AUTHOR AUTHOR'S ORGANIZ ATION 05/15/2025 [facility] EPIC REASON FOR VISIT (unrecogniz ed section and content) ReasonCommentsMed RefillReasonCommentsWell Women VisitReasonCommentsHypertension Annual ExamReasonCommentsURISx started tuesdayReasonCommentsFollow-upReason CommentsURI Care Teams (unrecognized sec tion and content) Team MemberRelationshipSpecialtyStart DateEnd Date Clementine oGodrich MD [address] [place] [address] PCP - GeneralFamily Medicine11/16/22 Morelia Diamond NP [address] [place] [address] PCP - [facility] Wwsklcyjlz99/1/23Team MemberRelationshipSpecialtyStart DateEnd Date Clementine Goodrich MD [address] [place] [address] PCP - [facility]11/16/22 Morelia Diamond NP [address] [place] [address] PCP - [facility] Twaqmtswvn25/1/23Te MemberRelationshipSpecialtyStart DateEnd Date Clementine Goodrich MD [address] [place] [address] PCP - [facility] Medicine11/16/22 Hyacinth Pizarro NP [address] [place] [address] PCP - [employer]11/09/23Te MemberRelationshipSpecialtyStart DateEnd Date Clementine Goodrich MD [address] [place] [address] PCP - [facility] Medicine11/16/22 Hyacinth Pizarro NP [address] [place] [address] PCP - [employer]11/09/23Te MemberRelationshipSpecialtyStart DateEnd Date Clementine Goodrich MD [address] [place] [address] PCP - GeneralFamily Medicine11/16/22 Hyacinth Pizarro NP [address] [place] [address] PCP - [employer]11/09/23Team MemberRelationshipSpecialtyStart DateEnd Date Clementine Goodrich MD [address] [place] [address] PCP - GeneralFamily Medicine11/16/22 Hyacinth Pizarro NP [address] [place] [address] PCP - [employer]11/09/23Team MemberRelationshipSpecialtyStart DateEnd Date Clmeentine Goodrich MD [address] [place] [address] PCP - GeneralFamily Medicine11/16/22 Hyacinth Pizarro NP [address] [place] [address] PCP - [employer]11/09/23Team MemberRelationshipSpecialtyStart DateEnd Date Clementine Goodrich MD [address] [place] [address] PCP - GeneralFamily Medicine11/16/22 Hyacinth Pizarro NP [address] [place] [address] PCP - [employer]11/09/23Team MemberRelationshipSpecialtyStart DateEnd Date Clementine Goodrich MD [address] [place] [address] PCP - GeneralFamily Medicine11/16/22 Team Status: Active Member Role Status Dates NON STAFF Primary Care Provider Active Team Status: Inactive Member Role Status Dates Casie Perez APRN Attending Provider Active S tart: September 05, 2024 End: September 05, 2024NON STAFFPrimary Care ProviderActiveStart: September 05, 2024 End: September 05, 2024Team MemberRelationshipSpecialtyStart DateEnd Date Clementine Goodrich MD [address] [place] [address] PCP - GeneralFamily Medicine11/16/22Team MemberRelationshipSpecialtyStart DateEnd Date Clementine Goodrich MD [address] [place] [address] PCP - GeneralFamily Medicine11/16/22Team MemberRelationshipSpecialtyStart DateEnd Date Clementine Goodrich MD [address] [place] [address] PCP - GeneralFamily Medicine11/16/22Team MemberRelationshipSpecialtyStart DateEnd Date Clementine Goodrich MD [address] [place] [address] PCP - GeneralFamily Medicine11/16/22Team MemberRelationshipSpecialtyStart DateEnd Date Clementine Goodrich MD [address] [place] [address] PCP - GeneralFamily Medicine11/16/22Team MemberRelationshipSpecialtyStart DateEnd Date Clementine Goodrich MD [address] [facility] [place] [address] PCP - [facility]11/16/22Team MemberRelationshipSpecialtyStart DateEnd Date Clementine Goodrich MD [address] [place] [address] PCP - [facility]11/16/22Team MemberRelationshipSpecialtyStart DateEnd Date Clementine Goodrich MD [address] [place] [address] PCP - [facility]11/16/22 Hyacinth Pizarro NP [address] [facility] [address] [place] [address] PCP - [employer]11/09/2411Team MemberRelationshipSpecialtyStart Date End Date Clementine Goodrich MD [address] [place] [address] PCP - [facility]11/16/22Team MemberRelationshipSpecialtyStart DateEnd Date Clementine Goodrich MD [address] [place] [address] PCP - [facility]11/16/22 Goals (unrecognized section and content) Goals may be documented in a n alternate section FOR RECORDS PERTAINING TO PATIENTS WHO ARE [...] BE BASED ON THE PRIMARY CLINICAL RECORDS. [facility]. provides no warranty or guarantee of the accuracy or completeness of information in this document.
== END 2025-05-30 09:24 | disposition home or self-care (01) ==
LOC: MAMMO 09:23
PROVIDERS: PCP Family Medicine; Visit Provider Obstetrics & Gynecology
DX: Z12.31 Encounter for screening mammogram for malignant neoplasm of breast (principal)
CPT/HCPCS: 77063; 77067

== ENCOUNTER 2025-05-30 15:50 | Outpatient (REF) | payer BC, SELFPAY ==
--- OUTSIDE RECORDS SUMMARY | 2025-05-30 15:58 | XMS_ITS | CCD ---
Author Organization [facility] Care Team Providers Care Cardiovascular Or Nurse Name Role Phone WEST, DR GEM Escobedo Consulting Unavailable EDWARD, DR KWOK Admitting Unavailable EDWARD, DR KWOK Attending Unavailable KP, DR LUCERO Primary Care Unavailable EDWARD, DR KWOK Consulting Unavailable EDWARD, DR KWOK Consulting Unavailable EDWARD, DR KWOK Admitting Unavailable EDWARD, DR KWOK Attending Unavailable KP, DR LUCERO Primary Care Unavailable Sadie Mcclure Unavailable Clementine Goodrich MD Primary Care Provider Dara SALES ACCOUNT REPRESENTATIVE, Morelia Sykes Unavailable Juarez SALES ACCOUNT REPRESENTATIVE, Hyacinth Sykes Unavailable Juarez SALES ACCOUNT REPRESENTATIVE, Hyacinth A Unavailable AMISH BRADFORD Attending Unavailable AMISH BRADFORD Attending Unavailable SUNDAR LEON Attending Unavailable AMISH BRADFORD Attending Unavailable AMISH BRADFORD Attending Unavailable MORELIA YEE Attending Unavailab le Allergies Allergy ClassificationReported Allergen(s)Allergy TypeDate of OnsetReaction(s) Facility (1 source)Sulfamethoxazole / TrimethoprimDrug AllergyThe [facility] (20 sources)Sulfamethoxazole / TrimethoprimDrug Slulnpj67-35-5032duujt, Fever, Itching, Rash, SwellingNOMS Healthcare (1 source)SulfamethoxazoleDrug Ukgsizt13-00-4635YyevcVfiyalfjiEast [facility] (1 source)TrimethoprimDrug Mquonwh44-02-6869ZhstgMtomwjebhEast [facility] Regional Hospital Medications Current Medications MedicationDrug Class(es)DatesSig (Normalized)Sig (Original)[id number] 200 actuat albuterol 0.09 mg/actuat metered dose inhaler (7 sources)beta2-Adrenergic AgonistStart: 43-31-5673mjce 2 puff(s) by inhalation every four hours for wheezingalbuterol HFA 90 mcg/act inhaler Indications: Acute bronchitis, unspecified organism Inhale 2 puffsevery 4 (four) hours if needed for wheezing 18 g 12/21/2024 Activeamoxicillin 500 mg oral capsule (5 sources)Penicillin-class AntibacterialStart: 24-83-3303bavk 1 capsule by mouth every eight hours as neededamoxicillin (Amoxil) 500 MG capsule Take 500 mg by mouth if needed (every 8 hours as needed) 01/14/2025 Activeamoxicillin 875 mg / clavulanate 125 mg oral tablet (3 sources)Penicillin-class AntibacterialStart: 05-14-2025 End: 42-59-0641zbqx 1 tablet by mouth in the morningamoxicillin-clavulanate (Augmentin) 875-125 MG tablet Indications: Bronchitis , Acute left otitis media Take 1 tablet (875 mg) by mouth in the morning and 1 tablet (875 mg) before bedtime. Do all this for 7 days. 14 tablet 05/14/2025 05/21/2025 ActiveStart: 12-21-2024 End: 48-08-3499mhen 1 tablet by mouth in the morningamoxicillin-clavulanate (Augmentin) 875-125 MG tablet Indications: Acute cough Take 1 tablet (875 mg) by mouth in the morning and 1 tablet (875 mg) before bedtime. Do all this for 7 days. 14 tablet 12/21/2024 12/28/2024 Activeatorvastatin 20 mg oral tablet (20 sources)HMG-CoA Reductase InhibitorStart: 80-55-9825ghby 1 tablet by mouth once dailyatorvastatin (Lipitor) 20 MG tablet Indications: Mixed hyperlipidemia TAKE 1 TABLET BY MOUTH DAILY 90 tablet 03/13/2025 ActiveStart: 89-68-9700tkyx 1 tablet by mouth once dailyatorvastatin (Lipitor) 20 MG tablet Indications: Mixed hyperlipidemia TAKE 1 TABLET BY MOUTH DAILY 90 tablet 12/13/2024 ActiveStart: 45-14-7946lano 1 tablet by mouth once dailyatorvastatin (Lipitor) 20 MG tablet Indications: Mixed hyperlipidemia (CMS/HCC) TAKE 1 TABLET BY MOUTH DAILY 90 tablet 09/17/2024 ActiveStart: 74-88-0925Smtpqfelhwwe 20 mg tablet Active MG PO September 05, 2024 12:00amStart: 81-34-9418erlx 1 tablet by mouth once daily atorvastatin (Lipitor) 20 MG tablet Indications: Mixed hyperlipidemia (CMS/HCC) Take 1 tablet (20 mg) by mouth Daily 90 tablet 06/21/2024 ActiveStart: 01-13-2024 End: 69-17-8765aaks 1 tablet by mouth once daily in the morningatorvastatin (Lipitor) 10 MG tablet Indications: Mixed hyperlipidemia (CMS/HCC) TAKE 1 TABLET BY MOUTH EVERY MORNING 90 tablet 1 01/13/2024 06/21/2024 Discontinued (Reorder) Start: 95-37-3768wazl 1 tablet by mouth once daily in the morningatorvastatin (Lipitor) 10 MG tablet Indications: Mixed hyperlipidemia (CMS/HCC) TAKE ONE TABLET BY MOUTH EVERY MORNING 90 tablet 1 07/15/2023 Activeazithromycin 250 mg oral tablet (1 source)Macrolide AntimicrobialStart: 29-54-7196Ahimhyaszwgq 250 MG 2 tablet on the first day, then 1 tablet daily for 4 days Orally Once a day for5 day(s) November, Activebenzonatate 100 mg oral capsule (2 sources)Non-narcotic AntitussiveStart: 05-14-2025 End: 30-33-4840jzrb 1 capsule by mouth three times daily as needed for cough benzonatate (Tessalon Perles) 100 MG capsule Indications: Bronchitis Take 1 capsule (100 mg) by mouth 3 (three) times a day as needed for cough for up to 7 days Do not crush or chew. 20 capsule 05/14/2025 05/21/2025 ActivebuPROPion hydrochloride 100 mg oral tablet (20 sources)AminoketoneStart: 08-07-2024 End: 68-58-2691awdd 1 tablet by mouth once daily in the morning, then take 1 tablet by mouth once daily at bedtimebuPROPion (Wellbutrin) 100 MG tablet Indications: Morbid obesity (CMS/HCC) TAKE 1 TABLET BY MOUTH EVERY MORNING AND TAKE 1 TABLET BY MOUTH DAILY BEFORE BEDTIME 180 tablet 1 08/07/2024 12/14/2024 Discontinued (Therapy completed)Start: 61-92-8358vamw 1 tablet by mouth in the morningbuPROPion (Wellbutrin) 100 MG tablet Indications: Morbid obesity (CMS/HCC) Take 1 tablet (100 mg) by mouth in the morning and 1 tablet (100 mg) before bedtime. 180 tablet 1 11/15/2023 ActiveStart: 05-20-2023 End: 23-21-8453rbmv 1 tablet by mouth once daily at bedtimebuPROPion (Wellbutrin) 100 MG tablet Indications: Morbid obesity (CMS/HCC) TAKE ONE TABLET BY MOUTHEVERY MORNING AND BEFORE BEDTIME 180 tablet 1 08/16/2023 Activelosartan potassium 25 mg oral tablet (20 sources)Angiotensin 2 Receptor BlockerStart: 85-11-6638bwuk 1 tablet by mouth once daily in the morninglosartan (Cozaar) 25 MG tablet Indications: Primary hypertension TAKE 1 TABLET BY MOUTH EVERY MORNING 90 tablet 1 01/31/2025 ActiveStart: 08-19-0423pkcl 1 tablet by mouth once daily in the morninglosartan (Cozaar) 25 MG tablet Indications: Primary hypertension TAKE 1 TABLET BY MOUTH EVERY MORNING 90 tablet 1 08/07/2024 ActiveStart: 78-19-2799ebno 1 tablet by mouth in the morninglosartan (Cozaar) 25 MG tablet Indications: Primary hypertension (CMS/HCC) Take 1 tablet (25 mg) bymouth in the morning. 90 tablet 1 11/15/2023 ActiveStart: 05-20-2023 End: 85-69-5610epyc 1 tablet by mouth once daily in the morninglosartan (Cozaar) 25 MG tablet Indications: Primary hypertension (CMS/HCC) TAKE ONE TABLET BY MOUTHEVERY MORNING 90 tablet 1 08/16/2023 Activemelatonin 5 mg oral tablet (20 sources)melatonin 5 MG tablet 1 (one) time each day at the same time. Active methylPREDNISolone 4 mg oral tablet (2 sources)CorticosteroidStart: 71-29-8380rohabnJMYOQQNlgchn 4 MG as directed Orally for daily dose take half with breakfast, half with dinner for 6 days Oct, ActiveMultiple Vitamins-Minerals (MULTIVITAMIN GUMMIES ADULT PO) (20 sources)Multiple Vitamins-Minerals (MULTIVITAMIN GUMMIES ADULT PO) Take by mouth. ActiveMultiple Vitamins-Minerals (MULTIVITAMIN GUMMIES ADULT PO) Take by mouth. 0 Activenaltrexone hydrochloride 50 mg oral tablet (20 sources)Opioid AntagonistStart: 11-15-2023 End: 87-90-5471qjvo 0.5 tablet by mouth once dailynaltrexone (Depade) 50 MG tablet Indications: Morbid obesity (CMS/HCC) TAKE A HALF TABLET BY MOUTH DAILY 15 tablet 10/26/2024 ActiveStart: 05-20-2023 End: 97-14-9113zond 0.5 tablet by mouth in the morningnaltrexone (Depade) 50 MG tablet Indications: Morbid obesity (CMS/HCC) Take 0.5 tablets (25 mg) by mouth in the morning. Take with bupropion. 45 tablet 0 05/20/2023 08/18/2023 Active predniSONE 20 mg oral tablet (1 source)Start: 12-21-2024 End: 35-48-7850tbwk 1 tablet by mouth in the morningpredniSONE (Deltasone) 20 MG tablet Indications: Acute bronchitis, unspecified organism Take 1 tablet (20 mg) by mouth in the morning and 1 tablet (20 mg) before bedtime. Do all this for 5 days. 10 tablet 12/21/2024 12/26/2024 Activetopiramate 25 mg oral tablet (14 sources)Start: 12-14-2024 End: 21-05-5121mqvu 1 tablet by mouth in the morningtopiramate (Topamax) 25 MG tablet Indications: Morbid obesity (CMS-HCC) Take 1 tablet (25 mg) by mouth in the morning and 1 tablet (25 mg) before bedtime. 180 tablet 1 01/18/2025 Active 24 hr venlafaxine 37.5 mg extended release oral capsule (20 sources)Serotonin and Norepinephrine Reuptake InhibitorStart: 60-21-3530wxpe 1 capsule by mouth once daily in the morningvenlafaxine XR (Effexor XR) 37.5 MG 24 hr capsule Indications: Anxiety and depression TAKE 1 CAPSULE BY MOUTH EVERY MORNING 90 capsule 1 12/13/2024 ActiveStart: 81-52-9307wdoj 1 capsule by mouth every twenty-four hours in the morningvenlafaxine XR (Effexor XR) 37.5 MG 24 hr capsule Indications: Anxiety and depression (CMS/HCC) Take 1 capsule (37.5 mg) by mouth in the morning. 90 capsule 1 06/22/2024 ActiveStart: 03-19-2024 End: 48-88-7787oquf 1 capsule by mouth once daily in the morningvenlafaxine XR (Effexor XR) 37.5 MG 24 hr capsule Indications: Anxiety and depression (CMS/HCC) TAKE 1 CAPSULE BY MOUTH EVERY MORNING 90 capsule 03/19/2024 06/22/2024 Discontinued (Reorder)Start: 24-91-1461bkgw 1 capsule by mouth once daily in the morningvenlafaxine XR (Effexor XR) 37.5 MG 24 hr capsule Indications: Anxiety and depression (CMS/HCC) TAKE ONE CAPSULE BY MOUTH EVERY MORNING 90 capsule 0 07/01/2023 ActiveEffexor Active Problems Active Problems Problem ClassificationProblemDateDocumented DateEpisodic/ChronicAcute bronchitis (1 source)Acute bronchitis; Translations: [Acute bronchitis, unspecified] 93-94-5765YkeohpzpRrcjegu disorders (1 source)Mixed anxiety and depressive disorder; Translations: [Anxiety disorder, unspecified]63-47-0396AsswafuFcuzbys obstructive pulmonary disease and bronchiectasis (2 sources)Bronchitis; Translations: [Bronchitis, not specified as acute or chronic]33-63-7831BnxagnhxZxstrepu mellitus without complication (2 sources)Prediabetes; Translations: [Prediabetes]87-73-7756MnblsezaSekoyycxf of lipid metabolism (20 sources)Elevated fasting lipid profile; Translations: [Hyperlipidemia, unspecified]Onset: 025023-51-5067LuvkxfaMtqvznjus of teeth and jaw (2 sources)Dental abscess; Translations: [Periapical abscess without sinus] 13-33-4190RjgtoradZhhcrdngl hypertension (18 sources)Essential hypertension; Translations: [Essential (primary) hypertension]Onset: 113335-21-0168RezgsrhJqapsjsjzkozq and screening for infectious disease (1 source)Encounter for screening for human papillomavirus (HPV); Translations: [ENC SCREENING HUMAN PAPILLOMAVIRUS]Onset: 31-05-3880AdxbzwwaEnqyc lower respiratory disease (1 source)Cough; Translations: [Acute cough]19-22-3946MtwjzklaUikpv nutritional; endocrine; and metabolic disorders (20 sources)Morbid obesity; Translations: [Morbid (severe) obesity due to excess calories]Onset: 563014-05-3356AuuvvguQkcwi upper respiratory disease (2 sources)Seasonal allergy; Translations: [Other seasonal allergic rhinitis] ChronicOther upper respiratory disease (2 sources)Allergic rhinitis due to pollen; Translations: [Allergic rhinitis due to pollen]ChronicOther upper respiratory disease (1 source)Allergic rhinitis due to pollenChronicOther upper respiratory disease (2 sources)Nasal congestion; Translations: [Nasal congestion]09-25-7943Wgqprrjx Other upper respiratory infections (6 sources)Sore throat symptom; Translations: [Acute pharyngitis, unspecified] EpisodicOtitis media and related conditions (2 sources)Acute left otitis media; Translations: [Otitis media, unspecified, left ear]95-87-2996AhpggcgjGpusmgaygywk (19 sources)Patient on antidepressant monitoring planOnset: Past or Other Problems Problem ClassificationProblemDateDocumented DateEpisodic/ChronicAllergic reactions (20 sources)Atopic dermatitis; Translations: [Atopic dermatitis, unspecified] Onset: 04-18-2023 Resolved: 505386-10-4971SmmguqiEbmjtimd; including migraine (20 sources)Tension-type headache; Translations: [Tension-type headache, unspecified, not intractable]Onset: 04-18-2023 Resolved: 293252-01-0416DxxtiefSzvo disorders (20 sources)Mood disordersOnset: 06-05-2024 Resolved: Other inflammatory condition of skin (20 sources)Perioral dermatitis; Translations: [Perioral dermatitis]Onset: 04-18-2023 Resolved: 867009-54-5317MaxlkzqGousb screening for suspected conditions (not mental disorders or infectious disease) (20 sources)Encounter for screening mammogram for malignant neoplasm of breast; Translations: [Encounter for screening for malignant neoplasm of cervix]Onset: 05-05-2022 Resolved: 08-65-8964Onkmiyvl Results Test NameValueInterpretationReference RangeFacilityMM TOMOSYNTHESIS SCREENING BI on 93-64-1366Mnk[place], [place] [address] Mammography Report Signed Patient: CLEMENTINE ENRIQUEZ MR#: [id number] : 1980 Acct:[id number] Age/Sex: 44 / F ADM Date: 05/29/24 Loc: MAMMO Attending Dr: Sundar Leon D.O. Ordering Physician: Sundar Leon D.O. Results: Date of Service: 05/29/24 Follow Up: Procedure(s): MM tomosynthesis screening BI Accession Number(s): [id number] cc: Sundar Leon D.O.; CLEMENTINE GOODRICH Patient Name: CLEMENTINE ENRIQUEZ MR#: [id number] : 1980 Exam Date: 05/29/2024 Ordering Doctor: [...] Treatments None Family Cancers None LOCATION: [facility] BREAST COMPOSITION: The breasts are heterogeneously [...] Clemons M.D. Signed By: 05/30/2433 DD/ TD/TT: Sports Specialist:TBHRadiology, Radiologist, - 05/30/2024 The [place] [id number] Mammography Report Signed Patient: CLEMENTINE ENRIQUEZ MR#: [id number] : 1980 Acct:[id number] Age/Sex: 44 / F ADM Date: 05/29/24 Loc: MAMMO Attending Dr: Sundar Leon D.O. Ordering Physician: Sundar Leon D.O. Results: Date of Service: 05/29/24 Follow Up: Procedure(s): MM tomosynthesis screening BI Accession Number(s): [id number] cc: Sundar Leon D.O.; CLEMENTINE GOODRICH Patient Name: CLEMENTINE ENRIQUEZ MR#: [id number] : 1980 Exam Date: 05/29/2024 Ordering Doctor: [...] Treatments None Family Cancers None LOCATION: [facility] BREAST COMPOSITION: The breasts are heterogeneously [...] M.D. Signed By: 05/30/24 0833 DD/ TD/TT: Sports Specialist: [facility] HealthcareRadiology Study observation (narrative)[facility] TOMOSYNTHESIS SCREENING BIOrdered By: Radiologist Radiology on 28-18-7248CDKJ [facility] Work Phone: PHILOMENA,RICKIMA HPV,AGE GDLNon 27-04-2746HEE GDLN ACOG TESTINGNote.[facility] HealthcareComment on above:TESTS RESULT FLAG UNITS REF RANGE LAB Clinician Provided Cytology Information Source.............Cervix;Endocervix No. of containers..01 ThinPrep Vial Age Algo ACOG Mercedes... 30-65 01 FLAG LEGEND: L-Low Normal,H-High Normal,LL-Alert Low,HH-Alert High <-Panic Low,>-Panic High,A-Abnormal,AA-Critical Abnormal Performed at: 01 =[facility] [address] Leana Dobson MD, HPV APTIMANegativeNegativeLDS [facility]OS[facility] HealthcareComment on above:This nucleic acid amplification test detects fourteen high- risk HPV types (16,18,31,33,35,39,45,51,52,56,58,59,66,68) without differentiation. Performed at: =[facility] [id number] Grease Machine Worker: Leana Dobson MD, Phone: [phone] Performed at: - [facility] [address], [place] [id number] Grease Machine Worker: Leana Dobsno MD, Phone: [phone] IGP, APTIMA HPV, RFX 16/18,45Note.[facility]OM[facility] HealthcareComment on above:TESTS RESULT FLAG UNITS REF RANGE LAB DIAGNOSIS: 02 NEGATIVE FOR INTRAEPITHELIAL LESION OR MALIGNANCY. Specimen adequacy: 02 Satisfactory for evaluation. Endocervical and/or squamous metaplastic cells (endocervical component) are present. Performed by: Helio Matos, Gis Manager (ASC) . 02 Note: Note 02 The [...] High,A-Abnormal,AA-Critical Abnormal Performed at: 02 WB [facility] [address], [place] [address] Leana Dobson MD, BRUSH-SPATULA CERVIX ENDOCERVIX CLINISYNCNOMS [facility] HospitalQuick Strepon 11-07-2022S. pyogenes Org specific cx Ql (Throat)NegativeOnalaska [employer] Other Quick StrepNoGenius Pack Other mg MAMM SCREEN 3D CORY CADon 61-91-0646DH MAMM SCREEN 3D CORY CADPatient: CLEMENTINE ENRIQUEZ Exam Date: 05/20/2022 : 1980 Gender:F Ordering : DR SUNDAR LEON . Admission #: [id number] Family : Order #: [id number] CLICK HERE TO VIEW EXAM RADIOLOGY REPORT PROCEDURE: MAMMOGRAM SCREENING 3D BILATERAL CAD COMPARISON: MG MAMM CORY DIAG FU, 08/05/2020. MAMMO POST BIOPSY RIGHT, 08/11/2020. INDICATIONS: Screening mammography Calculator Name NCI Breast Cancer Risk Assessment Tool 5 Year Breast Cancer Risk 0.90% Lifetime Breast Cancer Risk 10.80% Personal Breast Cancer No Personal Ovarian Cancer No Treatments None Family Cancers None LOCATION: [facility] BREAST COMPOSITION: Heterogeneously dense,which may obscure [...] by: Gem Clemons MD on 05/21/2022 at 09:14[facility] ACOG PANEL 2: 30 to 65on 05-12-2022..NormalThe [facility] HospitalComment on above:Result Comment: Performed at: WBPerformed By: #### [id number] #### [facility] [address] [place] [address] Dr. Benedicto Morris Gdln ACOG Mjbehzq08-43OphnocZkoTriHealthComment on above:Performed By: #### [id number] #### [facility] [address] [place] [address] Dr. Benedicto BraswellDIAGNOSIS:CommentOhio State Harding Hospital on above: Result Comment: NEGATIVE FOR INTRAEPITHELIAL LESION OR MALIGNANCY. Performed at: WBPerformed By: #### [id number] #### [facility] [address] [place] [address] Dr. Benedicto Narayanan AptimaNegativeNormalNegativeThe [facility] on above:Result Comment: This nucleic acid amplification test detects fourteen high-risk HPV types (16,18,31,33,35,39,45,51,52,56,58,59,66,68) without differentiation. Performed at: =GPerformed By: #### [id number] #### [facility] [address] [place] [address] Dr. Benedicto Narayanan Genotype ReflexCommentNoMemorial Hospital on above:Result Comment: Criteria not met, HPV Genotype not performed. Performed at: WBPerformed By: #### [id number] #### [facility] [address] [place] [address] Dr. Benedicto BraswellMethodology:CommentNoMemorial Hospital on above: Result Comment: This liquid based ThinPrep(R) pap test was screened with the use of an image guided system. Performed at: WBPerformed By: #### [id number] #### [facility] [address] [place] [address] Dr. Benedicto BraswellNote:CommentNoMemorial Hospital on above:Result Comment: The Pap smear is a screening test designed to aid in the detection of premalignant and malignant conditions of the uterine cervix. It is not a diagnostic procedure and should not be used as the sole means of detecting cervical cancer. Both false-positive and false-negative reports do occur. . Performed at: WBPerformed By: #### [id number] #### [facility] [address] [place] [address] Dr. Benedicto BraswellPerformed by:CommentNoMemorial Hospital on above: Result Comment: David Ramirez, Gis Manager (ASCP) Performed at: WBPerformed By: #### [id number] #### [facility] [address] [place] [address] Dr. Benedicto rBaswellSpecimen adequacy:CommentNoTriHealthComment on above:Result Comment: Satisfactory for evaluation. Endocervical and/or squamous metaplastic cells (endocervical component) are present. Performed at: WBPerformed By: #### [id number] #### [facility] [address] [place] [address] Dr. Benedicto Braswell Vital Signs Date TimeVital SignValuePerforming DarxfkseeTevsirwr86-73-3714 08:36-0500Body mass index (BMI) [Ratio]50.59 kg/s2Fzwwmfqdax Yee SALES ACCOUNT REPRESENTATIVE Work Phone: [phone]11-04-2025 08:36-0500Body temperature 97.5 [degF]Morelia Yee SALES ACCOUNT REPRESENTATIVE Work Phone: [phone] [place], [place] [address]Evvsplxpol42-11-1562 08:36-0500Body yrekzk576.51 kgChdax Yee SALES ACCOUNT REPRESENTATIVE Work Phone: [phone] [place], [place] [address]Kstkwwmmou10-67-4124 08:36-0500Diastolic blood ukmxptyx03 mm[Hg]Morelia Yee SALES ACCOUNT REPRESENTATIVE Work Phone: [phone] [place], [place] [address]Vrkcdgdmbr95-64-1647 08:36-0500Heart rate87 /min Morelia Yee SALES ACCOUNT REPRESENTATIVE Work Phone: [phone] [place], [place] [address]Jfptblfvju98-79-3888 08:36-6703SpE0% (BldA) [Mass fraction]97 %Morelia Yee SALES ACCOUNT REPRESENTATIVE Work Phone: [phone] [place], [place] [address]Usgcqpedli32-20-6121 08:36-0500Systolic blood eacinzha362 mm[Hg]Morelia Yee SALES ACCOUNT REPRESENTATIVE Work Phone: [facility] HospitalExoqzrosse87-21-4506 08:00-0400Body mass index (BMI) [Ratio]49.18 kg/e8FhufzAmish Bradford SALES ACCOUNT REPRESENTATIVE Work Phone: [phone] HospitalVrpqmfckbd13-85-2588 08:00-0400Body wzzamf858.43 kgAmish Bradford SALES ACCOUNT REPRESENTATIVE Work Phone: [phone] [address]Ovmzfgiscb71-54-0588 08:00-0400Diastolic blood zumtfryv55 mm[Hg]Amish Bradford SALES ACCOUNT REPRESENTATIVE Work Phone: [phone] [place], [place] [address]Nwdtixfcmw74-75-3697 08:00-0400Heart rate80 /min Amish Bradford SALES ACCOUNT REPRESENTATIVE Work Phone: [phone] [address]-11-2025 08:00-8885PyG9% (BldA) [Mass fraction]97 %Amish Bradford SALES ACCOUNT REPRESENTATIVE Work Phone: [phone] [place] [address]-11-2025 08:00-0400Systolic blood mm[Hg]Amish Bradford SALES ACCOUNT REPRESENTATIVE Work Phone: [phone] [place], [place] [address]Koylkljtok65-61-7993 11:01-0400Body lvicgt671.2 cmSaura Bradford SALES ACCOUNT REPRESENTATIVE Work Phone: [phone] [place], [place] [address]Ekqlmudkru63-61-4657 11:01-0400Body mass index (BMI) [Ratio]48.87 kg/z2NxwmlAmish Bradford SALES ACCOUNT REPRESENTATIVE Work Phone: [phone] [place], [place] [address]Ucveotbaip57-06-1330 11:01-0400Body .52 kgAmish Bradford SALES ACCOUNT REPRESENTATIVE Work Phone: [phone] HospitalZiadvjkjjb15-00-5388 11:01-0400Diastolic blood gjfumtmu76 mm[Hg]Amish Bradofrd SALES ACCOUNT REPRESENTATIVE Work Phone: [phone]06-11-2025 11:01-0400Heart rate89 /min Amish Bradford SALES ACCOUNT REPRESENTATIVE Work Phone: [phone] [address]Ktucukpxoe11-52-8482 11:01-3510KpG7% (BldA) [Mass fraction]97 %Amish Bradford SALES ACCOUNT REPRESENTATIVE Work Phone: [phone] [address]Iqttzfikmb16-57-7996 11:01-0400Systolic blood dgwobvop464 mm[Hg]Amish Bradford SALES ACCOUNT REPRESENTATIVE Work Phone: [facility] HospitalVgecorbubd24-97-5623 08:04-0400Body vuwktv186.2 cmSaura Bradford SALES ACCOUNT REPRESENTATIVE Work Phone: [phone] HospitalHfsrrlqflz09-31-6194 08:04-0400Body mass index (BMI) [Ratio]48.9 kg/g1TseobAmish Bradford SALES ACCOUNT REPRESENTATIVE Work Phone: [phone] HospitalHyyiirnzdm66-20-0448 08:04-0400Body ieiirc017.61 kgAmish Bradford SALES ACCOUNT REPRESENTATIVE Work Phone: [phone] HospitalOulixwpvec34-68-6675 08:04-0400Diastolic blood ckczhabj19 mm[Hg]Amish Bradford SALES ACCOUNT REPRESENTATIVE Work Phone: [phone] HospitalSunfahxdsq33-13-7941 08:04-0400Heart rate80 /min Amish Bradford SALES ACCOUNT REPRESENTATIVE Work Phone: [phone] [place], [place] [address]Ywnsahzqid64-20-5454 08:04-2313IxS6% (BldA) [Mass fraction]96 %Amish Bradford SALES ACCOUNT REPRESENTATIVE Work Phone: [phone] HospitalOspxhusadf94-01-7139 08:04-0400Systolic blood opwwktck904 mm[Hg]Amish Bradford SALES ACCOUNT REPRESENTATIVE Work Phone: [phone] HospitalYitbnvhrek52-24-6600 14:25-0500Body bantas769.18 cmAd[facility] Hospital02-26-2025 14:25-0500Body mass index (BMI) [Ratio]48.7 kg/i5YwrtactqxAd[facility]02-26-2025 14:25-0500Body injoxonxmaa85.8 [degF][facility]02-26-2025 14:25-0500Body edtclw901.23 [facility]02[facility] 14:25-0500Diastolic blood yhjkftoh67 mm[Hg][facility]02-26-2025 14:25-0500 Heart rate84 /[facility]02-26-2025 14:25-0500 Respiratory rate17 /[facility]02-26-2025 14:25-0500 SaO2% (BldA) [Mass fraction]98 %[facility]02-26-2025 14:25-0500Systolic blood ddqtphyv521 mm[Hg][facility] 06-05-2024 18:29-0500Body dpiqql700.2 Tin Bradford SALES ACCOUNT REPRESENTATIVE Work Phone: [facility] HospitalZzonbbckbf47-50-9909 18:29-0500Body mass index (BMI) [Ratio]48.62 kg/g2YfhkvAmish Bradford SALES ACCOUNT REPRESENTATIVE Work Phone: [facility] HospitalKrxfpzieyc64-21-3865 18:29-0500Body ioqhui815.8 kgAmish Bradford SALES ACCOUNT REPRESENTATIVE Work Phone: [facility] HospitalVafkengcct55-10-7790 18:29-0500Diastolic blood nmyawvvh99 mm[Hg]Amish Bradford SALES ACCOUNT REPRESENTATIVE Work Phone: [facility] HospitalIfqeooazif81-61-9182 18:29-0500Heart rate80 /min Amish Bradford SALES ACCOUNT REPRESENTATIVE Work Phone: [phone] HospitalRioxewekki41-46-0424 18:29-9156BjF4% (BldA) [Mass fraction]97 %Amish Bradford SALES ACCOUNT REPRESENTATIVE Work Phone: [facility] HospitalZvgwmipirr82-26-0945 18:29-0500Systolic blood ezrqxvww707 mm[Hg]Amish Bradford SALES ACCOUNT REPRESENTATIVE Work Phone: [facility] HospitalPsrfhvfvae24-84-0770 08:46-0500Body mass index (BMI) [Ratio]48.24 kg/f0Opumw Edward DO Work Phone: [facility] HospitalRbdtjjxmho03-59-0609 08:46-0500Body .71 kgCorey Edward DO Work Phone: [facility] HospitalZhddbsprio25-20-6657 08:46-0500Diastolic blood ppmkerwd16 mm[Hg]Sundar Edward DO Work Phone: [facility] HospitalDyywjrgeuq29-38-7872 08:46-0500Systolic blood xxhrlton758 mm[Hg]Sundar Edward DO Work Phone: [facility] HospitalUypmexktsz06-41-0814 10:45-0400Body .91 cmAmbchristi Mcclure Other [place] [employer] Other 04-30-2023 10:45-0400Body mass index (BMI) [Ratio] 49.28 kg/o2NckccSadie Mcclure Other [place] [employer] Other 04-30-2023 10:45-0400Body kkbblynbnyq16.5 [degF]Sadie [facility]cl[facility] [employer] Other 04-30-2023 10:45-0400Body gpqdyr449.62 kgHannachristi Ren Other [place] [employer] Other 04-30-2023 10:45-0400Diastolic blood ruhyraun99 mm[Hg] Sadie Mcclure [facility] [employer] Other 04-30-2023 10:45-0400Respiratory rate18 /minAmbchristi Mcclure Other [place] [employer] Other 04-30-2023 10:45-9389UyU6% (BldA) [Mass fraction]98 % Sadie Mcclure Other [place] [employer] Other 04-30-2023 10:45-0400Systolic blood lvwnpyhp920 mm[Hg] Sadie Mcclure [facility] [employer] Other Encounters Encounter DateEncounter TypeCare ProviderFacilityStart: 05-14-2025 End: 66-76-4598Gsfykq flowsheetChdax Yee NP Work Phone: [facility] MedicineStart: 05-14-2025 End: 49-11-2289Svswyw flowsheetChristy Mony Jarrod SALES ACCOUNT REPRESENTATIVE Work Phone: [facility] MedicineStart: 05-14-2025 End: 84-87-6030Dhluoh outpatient visit 25 minutesChristy Mony Johnsonbrennanblairpedro SALES ACCOUNT REPRESENTATIVE Work Phone: [facility] MedicineComment on above: Bronchitis (Primary Dx); Acute left otitis mediaStart: 05-14-2025 End: 54-84-4957vvshkefdyzJQJKUVF A Gudelia AvailableStart: 01-18-2025 End: 33-17-7221Bsgmuh Piercesebas Bradford SALES ACCOUNT REPRESENTATIVE Work Phone: [facility] FNR FMStart: 01-18-2025 End: 79-73-7259Qhfsci marilinheetSaura Bradford SALES ACCOUNT REPRESENTATIVE Work Phone: [facility] F[facility] FMStart: 01-18-2025 End: 56-32-1441Sttxzo outpatient visit 25 minutesSataryn Bradford SALES ACCOUNT REPRESENTATIVE Work Phone: [facility] FNR FMComment on above:Morbid obesity (CMS-HCC) (Primary Dx); Dental abscessStart: 01-18-2025 End: 58-85-1454idzieydrsmDEAFW KAMPFERNot AvailableStart: 12-21-2024 End: 61-84-0048Heuyiz OnlyAmish Bradford SALES ACCOUNT REPRESENTATIVE Work Phone: [facility] FNR FMComment on above:Acute cough (Primary Dx); Acute bronchitis, unspecified organismStart: 12-19-2024 End: 40-52-4393Luymar marilinMario Bradford SALES ACCOUNT REPRESENTATIVE Work Phone: [facility] F[facility] FMStart: 12-19-2024 End: 57-23-5727Grhqremehreen Bradford SALES ACCOUNT REPRESENTATIVE Work Phone: [facility] F[facility] FMStart: 12-19-2024 End: 47-41-6718Epbfzc outpatient visit 15 minutesSataryn Bradford SALES ACCOUNT REPRESENTATIVE Work Phone: [facility] FNR FMComment on above:Viral URI (Primary Dx) Start: 12-19-2024 End: 93-48-1664owqitwhsopLPBEG KAMPFERNot AvailableStart: 12-14-2024 End: 38-94-4230Xfisdc flowsMario Neffdileepjordan SALES ACCOUNT REPRESENTATIVE Work Phone: [facility] FNR FMStart: 12-14-2024 End: 20-64-5786Ajsgpv flowsMylaaura Sagastumejodran SALES ACCOUNT REPRESENTATIVE Work Phone: [facility] F[facility] FMStart: 12-14-2024 End: 51-53-5321Xflted outpatient visit 25 minutesSataryn Bradford SALES ACCOUNT REPRESENTATIVE Work Phone: [facility] FNR FMComment on above:Primary hypertension (CMS/HCC) (Primary Dx); Morbid obesity (CMS/HCC)Start: 12-14-2024 End: 57-81-2613qvapxcfbdtALSXO KAMPFERNot AvailableStart: 12-12-2024 End: 93-30-8071Qmlucxhng encounterClementine Goodrich MD Work Phone: [facility] FNR FMStart: 12-11-2024 End: 72-08-3987IrdilpYrvkqnnt Hohman MD Work Phone: [facility] FNR FMComment on above:Morbid obesity (CMS/HCC) Start: 10-26-2024 End: 01-23-6154UgzsasEutzb Kampfer SALES ACCOUNT REPRESENTATIVE Work Phone: [facility] FNR FMComment on above:Morbid obesity (CMS/HCC) Start: 09-05-2024 End: 20-37-0275jsgemeofltCgdwtcdxhUniversity Hospitals [facility] Work Phone: Start: 09-05-2024 End: 19-98-7591Rbciggr encounter [facility] Work Phone: Start: 08-30-2024 End: 93-25-8408EmacsjZbdzz Kampfer SALES ACCOUNT REPRESENTATIVE Work Phone: [facility] FNR FMComment on above:Morbid obesity (CMS/HCC) Start: 06-23-2024 End: 18-24-3572LvmedtXgbes Tanikajordan SALES ACCOUNT REPRESENTATIVE Work Phone: NOZQ FNR FMComment on above:Morbid obesity (CMS/HCC) Start: 06-22-2024 End: 38-99-5695JtugtvRvvgrrao Hohman MD Work Phone: [facility] FNR FMComment on above:Anxiety and depression (CMS/HCC)Start: 06-21-2024 End: 53-22-6472Hkrgvd OnlyAmish Bradford SALES ACCOUNT REPRESENTATIVE Work Phone: NOPV FNR FMComment on above:Mixed hyperlipidemia (CMS/HCC)Start: 06-05-2024 End: 42-11-9730Slxojjj encounter statussebas Tanikajordan SALES ACCOUNT REPRESENTATIVE Work Phone: [facility] Work Phone: Start: 06-05-2024 End: 97-84-5481Nxddawkw preventive med est patient 40-64yrSamsonaura Bradford SALES ACCOUNT REPRESENTATIVE Work Phone: NOXM FNR FMComment on above:Encounter for wellness examination (Primary Dx); Mixed hyperlipidemia (CMS/HCC); Prediabetes; Primary hypertension (CMS/HCC); Nasal congestion; Morbid obesity (CMS/HCC)Start: 06-05-2024 End: 82-00-5636wqpobdxgzeYVIMD KAMPFERNot AvailableStart: 06-05-2024 End: 59-61-6978Jxurnt marilinMario Bradford SALES ACCOUNT REPRESENTATIVE Work Phone: [facility] FNR FMStart: 06-05-2024 End: 24-52-2076Glypko Scooteraura Sagastumejordan SALES ACCOUNT REPRESENTATIVE Work Phone: [facility] FNR FMStart: 05-30-2024 End: 22-81-3935Paefsmrll Result EncounterGeneric External Data ProviderNOMS External Department UnsolicitedStart: 05-30-2024 End: 82-89-5461Xhrvaruzp Result EncounterGeneric External Data ProviderNOMS External Department UnsolicitedStart: 05-17-2024 End: 22-31-6796Rfhuon flowsheetCorey Edward DO Work Phone: [facility] BCP OBStart: 05-17-2024 End: 55-10-0973Vzfocf flowsheetCorey Edward DO Work Phone: [facility] BCP OBStart: 05-17-2024 End: 27-06-4345Ntayjzjxd Result EncounterCorey Edward DO Work Phone: [facility] External Department UnsolicitedStart: 05-17-2024 End: 77-25-7915Fplndke encounter procedureCorey Edward DO Work Phone: [facility] Work Phone: Start: 05-17-2024 End: 37-74-2599Ezeizjau preventive med est patient 40-64yrsCorey Edward DO Work Phone: [facility] BCP OBComment on above:Well woman exam with routine gynecological exam; Breast cancer screening by mammogramStart: 05-17-2024 End: 92-29-5993nclkphhpvvDRITV FAZIONot AvailableStart: 71-76-6658Nsqaqm flowsheetChristy A Diamond SALES ACCOUNT REPRESENTATIVE Work Phone: [facility] FNR FMStart: 65-07-1619Fbpmpk flowsheetChristy A Diamond SALES ACCOUNT REPRESENTATIVE Work Phone: [facility] FNR FMStart: 50-85-5359Lnuszoqlj encounter Clementine Goodrich MD Work Phone: [facility] FNR FMStart: 53-31-8698SutqmnSvmjp Kampfer NP Work Phone: noMS FNR FMComment on above:Primary hypertension (CMS/HCC); Morbid obesity (CMS/HCC)Start: 11-11-2022 End: 35-97-3510nbfqdikrkoQspuw Keller Other [facility] [employer] Other Start: 34-27-2324Xqpjecxci encounterSadie Raymond [facility]ertart: 11-07-2022 End: 10-57-0870halcpxlqfhGmtew Keller Other [facility] [employer] Other Start: 12-66-2113Umoaky outpatient new 30 minutesAmber RenFPG Urgent Care ClydeStart: 05-20-2022 End: 34-93-9680tqfaxgcnneAV GEM Escobedo WESTFacility:R8Fekmq: 05-05-2022 End: 78-69-0303yazxtpuqsaNU SUNDAR FAZIOFacility:H1 Procedures DateProcedureProcedure DetailPerforming ClinicianStart: 97-09-8594CA TOMOSYNTHESIS SCREENING BIGeneric External Data ProviderStart: 05-30-2024 MammographyCorey Edward DO Work Phone: Start: 46-34-2760AEO,APTIMA HPV,AGE GDLNGeneric External Data ProviderStart: 70-77-3474Uerakejoojo observation [Identifier] in Cervix by Cyto stainCorekortney Edward DO Work Phone: Start: 24-73-5464VpanmnysiidXvvtz Kampfer NP Work Phone: Start: 50-34-1206Taefgmqtqrl observation [Identifier] in Cervix by Cyto Yohana Bradford NP Work Phone: Plan of Treatment DateCare ActivityDetailAuthorStart: 68-67-0479Pbppjsgca for malignant neoplasm of cervixNOMS HealthcareStart: 71-36-0312Vlocphulw vaccinationInfluenza Vaccine (#1)[facility] HealthcareComment on above:Postponed from 03/11/2025 (Patient Refused) Start: 07-24-2025 End: 27-04-1260Usoyqjx encounter ksspzewzc30/14/2026 8:00 AM EST Office Visit [facility] [address] [place] [phone] Amish Bradford NP [address] [place] [id number] [facility] Simi Valleytart: 07-15-2025 End: 19-54-9835Kjiznpc encounter procedureNOMS FNR FMStart: 59-42-8268Yeybggcuo for malignant neoplasm of breastMammogramNOMS HealthcareStart: 05-30-2025 End: 53-38-8362Owpkcjt encounter keecbzgmt31/20/2025 8:30 AM EST Office Visit [facility] [address] [place] [phone] Sundar Leon, DO [address] [place], [place] [address] NOMDre CARTERGYNStart: 05-21-2025 End: 75-24-9870Lldyurg encounter bydfbthgr60/11/2025 8:30 AM EST Office Visit [facility] [address] [place] [phone] Sundar Leon, DO [address] [place], [place] [address] [facility] OBStart: 05-14-2025 End: 20-74-8148Lcidmgn encounter tbrkiczgt21/04/2025 8:30 AM EST Office Visit [facility] [address] [place] [phone] Morelia Yee NP [address] [place] [address] ArrivedMemorial Hospital WestComment on above: ArrivedStart: 23-43-9820Exacveivz for malignant neoplasm of cervixNOMS HealthcareStart: 38-90-8127FAPVZ-19 Vaccine ( season)COVID-19 Vaccine ( season)NOM HealthcareStart: 05-57-2049Qsrrausuv vaccination Influenza Vaccine (#1)NOM HealthcareStart: 01-18-2025 End: 53-58-3560Gkovgyy encounter procedureNOMS FNR FMComment on above:Arrived Start: 12-19-2024 End: 43-12-9599Xlfltkg encounter zhkxxakvl10/11/2025 11:00 AM EDT Office Visit [facility] [address] [facility] [place] [phone] TanikaAmish ortegaMIKAL [address] [facility] [place] [address] ArrivedNOMS FNR FMComment on above:ArrivedStart: 12-14-2024 End: 52-59-5289Fmqcruowsgytp metabolic 2000 panel - Serum or PlasmaComprehensive metabolic panel Lab Routine Morbid obesity (CMS/HCC) Primary hypertension (CMS/HCC) Expected: 12/14/2024 (Approximate), Expires: 12/14/2025[facility] Work Phone: Comment on above:Expected: 12/14/2024 (Approximate), Expires: 12/14/2025Start: 12-14-2024 End: 69-83-1758Wzpvuyz encounter procedureNOMS FNR FMComment on above:Arrived Start: 09-19-2024 End: 59-78-9710Gmwji 1996 panel - Serum or PlasmaLipid panel Lab Routine Mixed hyperlipidemia (CMS/HCC) Expected: 09/19/2024 (Approximate), Expires:06/21/2025 [facility] Work Phone: Comment on above:Expected: 09/19/2024 (Approximate), Expires: 06/21/2025Start: 06-05-2024 End: 99-93-1385Qvzvhnj encounter procedureNOMS FNR FMComment on above:Arrived Start: 06-05-2024 End: 77-84-3791Xropflnssuibs metabolic 2000 panel - Serum or PlasmaComprehensive metabolic panel Lab Routine Encounter for wellness examination Prediabetes Primary hypertension (CMS/HCC) Morbid obesity (CMS/HCC) Expected: 06/05/2024 (Approximate), Expires: 06/05/2025N[facility] HealthcareComment on above:Expected: 06/05/2024 (Approximate), Expires: 06/05/2025Start: 06-05-2024 End: 37-75-2204Tupdlbbphk A1c/Hemoglobin.total in BloodHemoglobin A1c Lab Routine Encounter for wellness examination Prediabetes Morbid obesity (CMS/HCC) Expected: 06/05/2024 (Approximate), Expires: 06/05/2025[facility] HealthcareComment on above:Expected: 06/05/2024 (Approximate), Expires: 06/05/2025Start: 06-05-2024 End: 59-56-8194Dxbzy 1996 panel - Serum or PlasmaLipid panel Lab Routine Encounter for wellness examination Mixed hyperlipidemia (CMS/HCC) Prediabetes Primary hypertension (CMS/HCC) Morbid obesity (CMS/HCC) Expected: 06/05/2024 (Approximate), Expires: 06/05/2025[facility] Work Phone: Comment on above:Expected: 06/05/2024 (Approximate), Expires: 06/05/2025Start: 06-05-2024 End: 97-63-7552VQW W/REFLEX TO FT4TSH W/REFLEX TO FT4 Lab Routine Encounter for wellness examination Morbid obesity (CMS/HCC) Expected: 06/05/2024 (Approximate), Expires: 06/05/2025[facility] HealthcareComment on above:Expected: 06/05/2024 (Approximate), Expires: 06/05/2025Start: 40-62-6811Mprehgvxo for malignant neoplasm of breastMammogramNOMD HealthcareStart: 05-17-2024 End: 62-56-0925ZU Breast - bilateral ScreeningBilateral screening mammogram Imaging Routine Breast cancer screening by mammogram Expected: 05/17/2024 (Approximate), Expires: 07/17/2025[facility] Work Phone: comment on above:Expected: 05/17/2024 (Approximate), Expires: 07/17/2025Start: 05-17-2024 End: 70-96-1340Srjuibj encounter procedureNOMS BCP OBComment on above:Arrived Start: 03-15-8079Ursthqgjk vaccinationInfluenza Vaccine (#1)[facility] Start: 08-18-2023 End: 39-97-0893Uiywyfa encounter galghfguy31/08/2024 4:00 PM EST Office Visit [facility] [address] [place] [address] Morelia Diamond NP [address] [facility] [place], [place] [phone] [facility] FNR FMComment on above:ArrivedStart: 76-43-2278Srymnmzzc for malignant neoplasm of cervixHPV/CotestNOMS HealthcareStart: 38-23-6913Ookwyxzzr for malignant neoplasm of colonNOMD HealthcareTHIN PREP TIS PAP AND HR HPV DNA THIN PREP TIS PAP AND HR HPV DNA Pathology and Cytology Routine Well woman exam with routine gynecological exam Ordered: 05/17/2024[facility] HospitalComment on above:Ordered: 05/17/2024 Immunizations Immunization DateImmunizationNotesCare HzcwbmdkHfxhshue09-83-4723xmjggebrt, seasonal, injectable, preservative freeSarah Kampfer SALES ACCOUNT REPRESENTATIVE Work Phone: [facility] HospitalFkqhnpiwng26-18-8606mibiqdgcb virus vaccine, unspecified formulationSarah Kampfer SALES ACCOUNT REPRESENTATIVE Work Phone: [facility] HospitalCcuoserwtp39-37-5449cuppstpfu, injectable, quadrivalent, preservative freeSarah Kampfer SALES ACCOUNT REPRESENTATIVE Work Phone: [facility] HospitalMavxratkcp61-89-5133zmfpwsxcl virus vaccine, unspecified formulationCorey Edward DO Work Phone: [facility] HospitalKylgwpubxa10-66-0169zrxeqdpne, injectable, quadrivalent, preservative freeSarah Kampfer SALES ACCOUNT REPRESENTATIVE Work Phone: [facility] HospitalPhhuedylmq08-15-3834dwqtursff, injectable, quadrivalent, preservative freeSarah Kampfer SALES ACCOUNT REPRESENTATIVE Work Phone: [facility] HospitalPhiwmptzcb05-76-3206bzetgdkni, injectable, quadrivalent, preservative freeSarah Kampfer SALES ACCOUNT REPRESENTATIVE Work Phone: [facility] HospitalRnmlxswqms75-42-2567kuzwmpxzy, injectable, quadrivalent, contains preservativeSarah Kampfer SALES ACCOUNT REPRESENTATIVE Work Phone: [facility] HospitalYqdljunnup66-12-3578hxozthk toxoid, reduced diphtheria toxoid, and acellular pertussis vaccine, Isiah Bradford NP Work Phone: [facility] Payers DatePayer CategoryPayerPolicy [id number] [id number] [facility]PO[facility] [id number] 2021-Present [phone] [address] [place] [address] [id number] 2.0.1.677049.3.57[id number] 2.0.1.840848.3.57[id number] 2.0.1.075110.3.57[id number] 2.160.1.571499.3.57[id number] 2.160.1.399972.3.57[id number] 2.16840.1.156111.3.57[id number] 2.16.840.1.750233.3.57[id number] 2.16.840.1.240913.3.579.2.1[id number] Social History DateTypeDetailFacilityUnknown if ever smokedNosaint john's [facility] [employer] Other Start: 04-10-2023 End: 78-04-3077Mfk Assigned At BirthNOMD HealthcareStart: 22-79-8291Chdzzol smoking status NHISNever smoked tobaccoNOMS HealthcareStart: 87-15-1748Cetnnfk use and exposureSmokeless tobacco non-userNOMS HealthcareStart: 05-20-2023 End: 39-58-7761Tkkshtx intakeCurrent drinker of alcohol (finding)[facility] Start: 04-10-2023 End: 12-57-0784Opurhzj of Social functionNOMS HealthcareWithin the last year, have you been afraid of your partner or ex-partner?NoNOMS HealthcareStart: 17-38-5306Dmemqqe Club or Organization MeetingsNot on [facility] centerNOMD HealthcareAre you now , , , , [...] got money to buy more.Never trueNOMS HealthcareStart: 28-36-4539Obvvayi Commentcaffeine: 1-2 cups/day coffee, soda [facility] HealthcareStart: 87-38-0434Yfy Assigned At BirthNot on fileLDS HOSPITAL Healthcare Start: 08-18-2023 End: 82-65-4226Jqgtxqv CommentSocial drinker once a month or lessLDS HOSPITAL Healthcare Start: 11-51-0582Jnzynei CommentSocial drinker once a month or less; caffeiene intake: 1 cup of coffee dailyLDS HOSPITAL HealthcareStart: 45-10-6996Bdg assigned at birthFeMassachusetts Eye & [facility] HealthcareStart: 61-13-8583Cshkqj identityIdentifies as female gender (finding)[facility] HealthcareStart: 22-78-8059Zhbfws orientationHeterosexual (finding)NOM HealthcareDo you belong to any clubs or organizations such as episcopalian groups, unions, fraternal or athletic groups, or school groups?YesPutnam County Memorial HospitalTobacco smoking status NHISUnknown if ever smokedRiverside Methodist Hospital Work Phone: Start: 57-89-2288GajGdkqcf (finding)[facility] Goals DatePatient GoalDesired Activity/StatePersonal health goal Functional Status DqitGjwcxxbkafClrbioLsgnmkxz38-66-7224Wordkdt Health Questionnaire 2 item (PHQ- 2) [Reported][facility] HospitalXvtzblyahu47-22-1195Mesbgft Health Questionnaire 2 item (PHQ- 2) [Reported][facility] HospitalNkstjidgfp81-47-9555AYI-1 quick depression assessment panel [Reported.PHQ][facility] HospitalSzzauwvvnv51-08-4076Lruxzejnwhr anxiety disorder 7 item (GIANNI-7)[facility] HospitalNzfpezigwk27-05-7880Eusvyoy Health Questionnaire 2 item (PHQ-2) [Reported][facility] HospitalQstznvijdm12-52-3465Xxlxpqehssb anxiety disorder 7 item (GIANNI-7) [facility] HospitalJbxchhhimw82-89-5581Cfsab score [AUDIT-C]1 06/02/2024 8:06 PM EST Mychart, GenericPutnam County Memorial HospitalJawxqyxqpy54-00-9455Jkc often do you have a drink containing alcohol?Monthly or less 06/02/2024 8:06 PM EST Mychart, Generic Monthly or less [facility] HospitalFsjpxktron71-77-1388Gtb many standard drinks containing alcohol do you have on a typical day?1 or 2 06/02/2024 8:06 PM EST Mychart, Generic 1 or 2NOMS Ogrdmhiiad64-84-1878Ssz often do you have 6 or more drinks on 1 occasion?Never 06/02/2024 8:06 PM EST Mychart, Generic [facility] Clinical Notes 11-07-2022 to 05-14-2025 Note Date & DokvByltXuzsdtym08-26-4396 History of Present illness Narrative* Morelia Mony Yee, SALES ACCOUNT REPRESENTATIVE - 05/14/2025 8:30 AM EST Subjective ?Quick [...] and headaches. She has been self-medicating with [place] Cold and Flu, but transitioned to Mucinex [...] patient experiences sinus pressure and headaches. - Smwz-msm-zcsjabv Flonase is recommended for sinus pressure and [...] MG 24 hr capsule documented in this encounterPutnam County Memorial HospitalZkhtlhcfuj46-00-9333 History of Present illness Narrative* Amish Bradford NP - 01/18/2025 8:00 AM EDTAssociated Problem(s): Morbid obesity ([facility]-H[facility]) Orders: topiramate (Topamax) 25 MG tablet; [...] completed. She was also referred to an bush hog operator for apotential root canal. Her appointment with the bush hog operator is scheduled for 01/28/2025 at 8 AM. [...] Physical Exam Assessment & Plan Morbid obesity ([facility]) Orders: topiramate (Topamax) 25 MG tablet; Take [...] by 01/28/2025, before the appointment with the bush hog operator. - Advised to contact the office if the infection persists for a prescription of doxycycline, to be taken with food to avoid nausea and increased sun sensitivity. - Reports reduced need for alternating Tylenol and ibuprofen due to improvement in symptoms. Follow-up - A follow-up visit is scheduled in 6 months. documented in this [facility]06-11-2025 History of Present illness Narrative* Amish Bradford [...] no fever. She has been self-medicating with ptlf-scs-phwgheg Sudafed, which provides relief when taken consistently. [...] for markedly worsening symptoms. documented in this encounterPutnam County Memorial HospitalBhzwvnwywf26-44-1250 History of Present illness Narrative* Amish Bradford [...] coverage issues. SOCIAL HISTORY She works at [employer]. SUBJECTIVE: MEDICATIONS: Current Outpatient Medications Medication Instructions [...] to increase physical exercise. documented in this encounterPutnam County Memorial HospitalJtjkuxrvlr67-86-4111 Telephone encounter Note* Telephone Encounter - Evette Rai - 12/12/2024 1:38 PM EDT error [facility] HospitalMnvqptgniq62-49-4833 Miscellaneous Notes* Telephone Encounter - Evette Rai - 12/12/2024 1:38 PM EDT error documented in this [facility]06-03-2025 Telephone encounter Note* Telephone Encounter - Ludmila Jones MA - 12/11/2024 12:16 PM EDT I noticed that the patient hasn't been seen since May 2024. Does she need an appointment prior to this refill? [facility] HospitalIkgjnjfsnx00-25-8800 Miscellaneous Notes* Telephone Encounter - Ludmila Jones [...] concern -no need to call. Poncho Clementine [phone] documented in this [facility]06-03-2025 Telephone encounter Note* Telephone Encounter - Ever Caldwell - 12/11/2024 11:06 AM EDT Is there anything she should be worried about - she has been without for a week . IF no concern -no need to call. Poncho Clementine [phone] [facility] HospitalRmdukvtzji24-41-6013 Telephone encounter Note* Telephone Encounter - Clementine Goodrich MD - 10/26/2024 11:43 AM EDT Approving, but needs appt for additional refills. [facility] HospitalGawawfbiab88-42-8876 Miscellaneous Notes* Telephone Encounter - Clementine Goodrich MD - 10/26/2024 11:43 AM EDT Approving, but needs appt for additional refills. documented in this encounterPutnam County Memorial [id number] History of Present illness Narrative* Amish Bradford [...] happen: Not at all GIANNI-7 Total Score: 0 SUBJECTIVE: MEDICATIONS: Current Outpatient [...] exercise. Continue bupropion-naltrexone combination documented in this encounterPutnam County Memorial [id number] History of Present illness Narrative* Hayde Hoff, [...] Atopic dermatitis 04/18/2023 Elevated fasting lipid profile ([facility]/HCC) 04/18/2023 Hyperlipidemia (CMS/HCC) 04/18/2023 Perioral dermatitis [...] Onset Mental illness Mother Lydia Hypertension Mother Lyida Arthritis Mother Lydia Depression Mother Lydia Stroke [...] nursing note reviewed. Exam conducted with a biological aide present. Vitals: Estimated body mass index is [...] of: Sundar Leon DO documented in this [facility]02-08-2024 Telephone encounter Note* Telephone Encounter - Natasha Petit - 08/18/2023 4:32 PM EST Patient is asking for a work note for tomorrow. She has been sick for 10 days. Yesterday she workeda 13 hour day. Please advise pt. Thank you. CHANNING HOMES [id number] Miscellaneous Notes* Telephone Encounter - Natasha Petit - 08/18/2023 4:32 PM EST Patient is asking for a work note for tomorrow. She has been sick for 10 days. Yesterday she workeda 13 hour day. Please advise pt. Thank you. documented in this [facility]04-30-2023 Evaluation note* Encounter Date Diagnosis Assessment Notes [...] plan recommendations. Oct,Sore throat (ICD-10 - J02.9) [facility] [place] Other Evaluation noteNo InformationNortEncompass Health [facility] [place] Other Evaluation note* Diagnosis Primary hypertension (CMS/HCC) [...] this encounter [facility]Evaluation noteNo assessment information availableRiverside Methodist Hospital Work Phone: Evaluation note* Diagnosis Morbid [...] Historypolypectomy from cervixSurgical Historybreast biopsyHospitalization HistorySee above GranData Other Summary Purpose Family History No Family [...] and content) DATE CREATED AUTHOR 05/24/2022 [facility] DATE CREATED AUTHOR AUTHOR'S ORGANIZ ATION 05/15/[address] [facility] EPIC REASON FOR VISIT (unrecogniz ed section and content) ReasonCommentsMed RefillReasonCommentsWell Women VisitReasonCommentsHypertension Annual ExamReasonCommentsURISx started tuesdayReasonCommentsFollow-upReason CommentsURI Care Teams (unrecognized sec tion and content) Team MemberRelationshipSpecialtyStart DateEnd Date Clementine Goodrich MD [address] [place] [address] PCP - GeneralFamily Medicine11/16/22 Morelia Diamond NP [address] [place] [address] PCP - [place] Snkwuzfqql72/1/23Team MemberRelationshipSpecialtyStart DateEnd Date Clementine Goodrich MD [address] [place] [address] PCP - [facility]11/16/22 Morelia Diamond NP [address] [place] [address] PCP - [place] Iuuqrtmhzy19/1/23Te MemberRelationshipSpecialtyStart DateEnd Date Clementine Goodrich MD [address] [place] [address] PCP - [facility] Medicine11/16/22 Hyacinth Pizarro NP [address] [place] [address] PCP - [place] [employer]11/09/23Te MemberRelationshipSpecialtyStart DateEnd Date Clementine Goodrich MD [address] [place] [address] PCP - [facility] Medicine11/16/22 Hyacinth Pizarro NP [address] [place] [address] PCP - [place] [employer]11/09/23Te MemberRelationshipSpecialtyStart DateEnd Date Clementine Goodrich MD [address] [place] [address] PCP - GeneralFamily Medicine11/16/22 Hyacinth Pizarro NP [address] [place] [address] PCP - [place] [employer]11/09/23Team MemberRelationshipSpecialtyStart DateEnd Date Clementine Goodrich MD [address] [place] [address] PCP - GeneralFamily Medicine11/16/22 Hyacinth Pizarro NP [address] [place] [address] PCP - [place] [employer]11/09/23Team MemberRelationshipSpecialtyStart DateEnd Date Clementine Goodrich MD [address] [place] [address] PCP - GeneralFamily Medicine11/16/22 Hyacinth Pizarro NP [address] [place] [address] PCP - [place] [employer]11/09/23Team MemberRelationshipSpecialtyStart DateEnd Date Clementine Goodrich MD [address] [place] [address] PCP - GeneralFamily Medicine11/16/22 Hyacinth Pizarro NP [address] [place] [address] PCP - [place] [employer]11/09/23Team MemberRelationshipSpecialtyStart DateEnd Date Clementine Goodrich MD [address] [place] [address] PCP - GeneralFamily Medicine11/16/22 Team Status: Active Member Role Status Dates NON STAFF Primary Care Provider Active Team Status: Inactive Member Role Status Dates Casie Perez APRN Attending Provider Active S tart: September 05, 2024 End: September 05, 2024NON STAFFPrimary Care ProviderActiveStart: September 05, 2024 End: September 05, 2024Team MemberRelationshipSpecialtyStart DateEnd Date Clementine Goodrich MD [address] [place] [address] PCP - GeneralFamily Medicine11/16/22Team MemberRelationshipSpecialtyStart DateEnd Date Clementine Goodrich MD [address] [place] [address] PCP - GeneralFamily Medicine11/16/22Team MemberRelationshipSpecialtyStart DateEnd Date Clementine Goodrich MD [address] [place] [address] PCP - GeneralFamily Medicine11/16/22Team MemberRelationshipSpecialtyStart DateEnd Date Clementine Goodrich MD [address] [place] [address] PCP - GeneralFamily Medicine11/16/22Team MemberRelationshipSpecialtyStart DateEnd Date Clementine Goodrich MD [address] [place] [address] PCP - GeneralFamily Medicine11/16/22Team MemberRelationshipSpecialtyStart DateEnd Date Clementine Goodrich MD [address] [facility] [place] [address] PCP - [facility]11/16/22Team MemberRelationshipSpecialtyStart DateEnd Date Clementine Goodrich MD [address] [facility] [place] [address] PCP - [facility]11/16/22Team MemberRelationshipSpecialtyStart DateEnd Date Clementine Goodrich MD [address] [facility] [place] [address] PCP - [facility]11/16/22 Hyacinth Pizarro NP [address] [facility] [address] [place] [address] PCP - [place] [employer]11/09/2411Team MemberRelationshipSpecialtyStart Date End Date Clementine Goodrich MD [address] [facility] [place] [address] PCP - [facility]11/16/22Team MemberRelationshipSpecialtyStart DateEnd Date Clementine Goodrich MD [address] [facility] [place] [address] PCP - [facility]11/16/22 Goals (unrecognized section and content) Goals may [...] BE BASED ON THE PRIMARY CLINICAL RECORDS. [facility]. provides no warranty or guarantee of the accuracy or completeness of information in this document.
== END 2025-05-30 15:51 | disposition home or self-care (01) ==
LOC: LAB 15:50
PROVIDERS: PCP Family Medicine; Visit Provider Obstetrics & Gynecology
DX: Z01.419 Encounter for gynecological examination (general) (routine) without abnormal findings (principal); Z12.31 Encounter for screening mammogram for malignant neoplasm of breast
CPT/HCPCS: 77063; 77067; 88175